=== PATIENT | male | born 1995 | race Caucasian/White ===

== ENCOUNTER → 2016-06-24 | Outpatient (CLI) | payer OTHER ==
[~2016-06-24] MED LIST: ADVIN10/60 INH; ALBUAER2 INH; CETI10TA10 PO; LISD30CA4 PO; PRT/40 PO; SNG10 PO
== END | disposition home or self-care (01) ==
LOC: C.LAB 21:34
DX: Z02.83 Encounter for blood-alcohol and blood-drug test (principal)

== ENCOUNTER 2017-07-21 20:01 | Observation (INO) | payer OTHER ==
[~2017-07-21] VITALS: Ht 167.6 cm; Wt 70.1 kg
[~2017-07-21 20:01] MED LIST changes: +PANT40TA2 PO; -PRT/40 PO
[2017-07-21] MEDS ORDERED: METOCLOPRAMIDE HCL INJ 5 MG/ML 2 ML VIAL IV STA (20:17)
--- NOTE | 2017-07-21 20:20 | EMERGENCY ROOM VISIT NOTE ---
History Report prepared by Melina: Yohannes Lawler Under the Supervision of: Dr. Ernesto Parish M.D. First contact with patient: 20:14 Chief Complaint: ABDOMINAL PAIN Stated Complaint: REALLY SHARP PAIN WHERE MY APPENDIX IS History of Present Illness The patient is a 21 year old male who presents to the Emergency Room with complaints of constant right lower quadrant abdominal pain that began two days prior to arrival. The patient states that he has been experiencing the pain for the past two days, but that it has worsened significantly over the past couple of hours and is now severe. He has no history of cholecystectomy or appendectomy. Source of History: patient Onset: 2 days Position: abdomen (RLQ) Symptom Intensity: severe Timing: constant, worsening Review of Systems See HPI for pertinent positives & negatives. A total of 10 systems reviewed and were otherwise negative. Past Medical & Surgical Medical Problems: (1) ACCIDENT DUE TO SNOWBOARD (2) Acute appendicitis (3) ASTHMA, UNSPECIFIED (4) ATTN DEFICIT W HYPERACT (5) COLLES' FRACTURE-CLOSED (6) CONCUSSION NOS (7) FAM HX-OTH KIDNEY DISEASES (8) FAMILY HISTORY OF OTHER CARDIOVASCULAR DISEASES (9) FAMILY HX-CONDITION NEC (10) FAMILY HX-MALIGNANCY NOS (11) FRACTURE OF STERNUM-CLOS (12) FX DISTAL RADIUS NEC-CL (13) FX HUMERUS NOS-CLOSED (14) FX METACARPAL NOS-CLOSED (15) Gastroesophageal reflux disease (16) TOXIC SHOCK SYNDROME (17) Viral meningitis Family History Patient reports no known family medical history. Social History Smoking Status: Current Every Day Smoker Alcohol Use: none Drug Use: none Marital Status: single Housing Status: lives with family Occupation Status: employed Current/Historical Medications Scheduled PRN Hydrocodone/Acetaminophen 5MG/325MG ([place] 5MG/325MG), 1-2 TABLET PO Q4H PRN for Pain Allergies Coded Allergies: Ibuprofen (Verified Allergy, Mild, HIVES, 07/21/17) Penicillins (Verified Allergy, Mild, HIVES, 07/21/17) Aspirin (Verified Allergy, Unknown, Hives, 07/21/17) Reported by PT. Physical Exam Vital Signs Date Time Temp Pulse Resp B/P (MAP) Pulse Ox O2 Delivery O2 Flow Rate FiO2 07/22/17 02:46 36.7 93 16 137/88 100 Oxymask 6 2/21/18 01:18 37.2 86 18 134/82 98 Room Air 07/22/17 00:03 81 18 132/68 96 Room Air 07/22/17 00:00 87 07/21/17 21:43 100 18 130/73 98 Room Air 07/21/17 20:41 100 19 95 Room Air 07/21/17 20:38 132/75 07/21/17 20:10 36.9 106 16 135/69 96 Room Air Physical Exam GENERAL: Patient is a healthy-appearing well-nourished male HEAD: Normocephalic atraumatic EYES: Ocular movements intact pupils equal and react to light OROPHARYNX mucous membranes are moist no exudates present no erythema or edema present NECK: Supple no nuchal rigidity CHEST: Good equal expansion LUNGS: Clear and equal to auscultation CARDIAC: Normal S1 and S2 ABDOMEN: Soft with tenderness to the RLQ BACK: No CVA tenderness EXTREMITIES: No pain upon palpation normal muscle strength in all groups no clubbing cyanosis or edema NEURO: Patient is following commands and answering questions appropriately. Alert and oriented x3 Cranial Nerves 2-12 grossly intact Medical Decision & Procedures ER Provider Diagnostic Interpretation: CT ABD/PELVIS IV AND ORAL CONT CLINICAL HISTORY: Right lower quadrant abdominal pain COMPARISON STUDY: None. TECHNIQUE: Following the IV administration of 91 mL of Optiray-320, CT scan of the abdomen and pelvis was performed from the lung bases to the proximal femurs. Images are reviewed in the axial, sagittal, and coronal planes. IV contrast was administered without complication. A dose lowering technique was utilized adhering to the principles of ALARA. CT DOSE: 262.05 mGy.cm FINDINGS: Lower chest: The heart is normal in size and configuration, without pericardial effusion. The lung bases and pleural spaces are clear. Liver: The contrast-enhanced liver is normal in size, contour, and attenuation. There is no intrahepatic biliary ductal dilatation. The hepatic veins and portal veins are patent. Gallbladder: Unremarkable. Spleen: Normal in size and attenuation. Pancreas: Unremarkable. Adrenal glands: Unremarkable. Kidneys: There is symmetric renal cortical enhancement. The kidneys are normal in size without hydronephrosis. Bowel: There are no transition zones indicate bowel obstruction. There is a thickened appendix measuring 12 mm with periappendiceal stranding. The findings are indicative of acute appendicitis. There are no fluid collections to indicate an abscess. Peritoneum: There is no intraperitoneal free air or abdominal ascites. Vasculature: The abdominal aorta is normal in course and caliber. Adenopathy: None. Pelvic viscera: The bladder, and pelvic viscera are unremarkable. Skeletal structures: No destructive osseous lesions are seen. IMPRESSION: Acute appendicitis Electronically signed by: Abhijeet Pemberton M.D. 07/22/2017 6:46 AM Laboratory Results Test 07/21/17 20:25 07/21/17 21:40 Total Bilirubin 0.6 mg/dl (0.2-1) Direct Bilirubin 0.2 mg/dl (0-0.2) Aspartate Amino Transf (AST/SGOT) 23 U/L (15-37) Alanine Aminotransferase (ALT/SGPT) 16 U/L (12-78) Alkaline Phosphatase 58 U/L (45-117) Total Protein 7.7 gm/dl (6.4-8.2) Albumin 4.2 gm/dl (3.4-5.0) Lipase 166 U/L (73-393) Urine Color YELLOW Urine Appearance CLEAR (CLEAR) Urine pH 7.0 (4.5-7.5) Urine Specific [place] 1.007 (1.000-1.030) Urine Protein NEG (NEG) Urine Glucose (UA) NEG (NEG) Urine Ketones NEG (NEG) Urine Occult Blood NEG (NEG) Urine Nitrite NEG (NEG) Urine Bilirubin NEG (NEG) Urine Urobilinogen NEG (NEG) Urine Leukocyte Esterase NEG (NEG) Labs reviewed by ED physician. Medications Administered Medications (Trade) Dose Ordered Sig/Andrea Route Start Time Stop Time Status Last Admin Dose Admin Metoclopramide HCl (Reglan Inj) 10 mg NOW STAT IV 07/21/17 20:17 07/21/17 20:18 DC 07/21/17 20:33 10 MG Hydromorphone HCl (Dilaudid Inj) 0.5 mg NOW STAT IV 07/21/17 23:55 07/21/17 23:56 DC 07/22/17 00:09 0.5 MG Ciprofloxacin/ Dextrose (Cipro / D5W) 400 mg NOW STAT IV 07/22/17 00:02 07/22/17 00:04 DC 07/22/17 00:09 400 MG Metronidazole (Flagyl / Nss) 500 mg NOW STAT IV 07/22/17 00:02 07/22/17 00:04 DC 07/22/17 00:09 500 MG Bupivacaine HCl/ Epinephrine Bitart (Sensorcaine/ Epinephrine 0.5% Mpf 1:200,000) 30 ml STK-MED ONCE .ROUTE 07/22/17 00:56 07/22/17 00:57 DC 07/22/17 02:36 10 ML ED Course 2015: Past medical records reviewed. The patient was evaluated in room B9. A complete history and physical examination was performed. 2017: Ordered Reglan 10 mg IV. Medical Decision Differential diagnosis: Etiologies such as appendicitis, diverticulitis, PUD, biliary pathology, UTI, pancreatitis, obstruction, mesenteric ischemia, aortic pathology, infections, inflammatory bowel disease, renal colic, as well as others were entertained. This is a 21-year-old male presents emergency department complaining of right lower quadrant abdominal pain. The patient is afebrile has a normal CBC normal renal profile normal liver profile. He is given Reglan and Dilaudid in the emergency department and sent for CAT scan of the abdomen and pelvis. The patient was signed out to Dr. Oglesby at change of shift Impression Primary Impression: Acute appendicitis Scribe Attestation The scribe's documentation has been prepared under my direction and personally reviewed by me in its entirety. I confirm that the note above accurately reflects all work, treatment, procedures, and medical decision making performed by me. Departure Information Dispostion Still a Patient Prescriptions Hydrocodone/Acetaminophen 5MG/325MG ([place] 5MG/325MG) Tab 1-2 TABLET PO Q4H Y for Pain for 3 Days, #30 TAB Prov: Tacho Anthony, PAGaboC 07/22/17 Referrals No Doctor, Assigned (PCP) Patient Instructions My [facility] Problem Qualifiers Primary Impression: Acute appendicitis Acute appendicitis type: unspecified acute appendicitis type Qualified Codes : K35.80 - Unspecified acute appendicitis
[2017-07-21] MEDS ORDERED: OPTIRAY 320 IV PRN (20:45)
[2017-07-21 20:53] LABS: BASO % 0.3 %; BASO ABS # 0.02 K/uL (0-0.2); EOS % 0.6 %; EOS ABS # 0.04 K/uL (0-0.5); HEMATOCRIT 42.8 % (42-52); HEMOGLOBIN 15.5 g/dL (14.0-18.0); IG# 0.01 K/uL (0.00-0.02); LYMPH % 13.4 %; MEAN CELL VOLUME 79.6 fL (80-100); MEAN CORPUSCULAR HEMOGLOBIN 28.8 pg (25-34); MEAN CORPUSCULAR HGB CONC 36.2 g/dl (32-36); MEAN PLATELET VOLUME 9.6 fL (7.4-10.4); MONO % 5.3 %; MONO ABS # 0.36 K/uL (0.11-0.59); NEUT % 80.3 %; PLATELET COUNT 195 K/uL (130-400); RED CELL DISTRIBUTION WIDTH CV 12.8 % (11.5-14.5); RED CELL DISTRIBUTION WIDTH SD 36.7 fL (36.4-46.3); WHITE BLOOD COUNT 6.73 K/uL (4.8-10.8)
[2017-07-21 21:14] LABS: ALBUMIN 4.2 gm/dl (3.4-5.0); CALCIUM 9.1 mg/dl (8.5-10.1); CREATININE 1.07 mg/dl (0.60-1.40); POTASSIUM 3.5 mmol/L (3.5-5.1)
[2017-07-21 21:17] LABS: TOTAL PROTEIN 7.7 gm/dl (6.4-8.2)
[2017-07-21] MEDS ORDERED: HYDROmorphone INJ 0.5 MG/0.5 ML SYR IV STA (23:55)
[2017-07-21] MEDS ORDERED: CEFOXITIN 2000MG/60 ML D5W IV STA (23:58)
[2017-07-22] VITALS (9 sets, daily range): BP systolic 122–136; BP diastolic 68–89; PULSE 57–87; TEMP 36.3–37.6; O2SAT 94–97; Ht 167.6 cm; Wt 70.1 kg
[2017-07-22] MEDS ORDERED: METRONIDAZOLE 500MG / 100ML NSS IV STA (00:02)
[2017-07-22] MEDS ORDERED: CIPROFLOXACIN 400MG / 200ML D5W IV STA (00:02)
--- NOTE | 2017-07-22 00:44 | History and Physical ---
History & Physical Date Jul 22, 2017. Chief Complaint RLQ abdominal pain History of Present Illness The patient is a 21 year old male with complaints of RLQ abdominal pain x 2 days. states he also has had some accompanying nausea and 2 episodes of vomiting. Denies hematemesis. He has been urinating and moving his bowels without trouble. States he has had some chills these past couple days but is not sure if he has had a fever. Denies recent illness. Denies any previous abdominal surgeries. Denies use of blood thinning or anticoagulant medications. States he last drank a little coffee around 1900. WBC WNL. CT Abd/pelvis shows findings for acute appendicitis. 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 Home Medications No Active Prescriptions or Reported Meds Physical Examination Skin: warm/dry Eyes: normal inspection Head: normocephalic, atraumatic Respiratory/Chest: lungs clear, normal breath sounds, no respiratory distress Cardiovascular: regular rate, rhythm, no murmur Abdomen / GI: normal bowel sounds, + pertinent finding (RLQ TTP) Neurologic/Psych: alert, oriented x 3 Diagnosis Acute Appendicitis ASA Classification: ASA Class I Plan of Treatment Acute Appendicitis Plan for laparoscopic appendectomy, possible open with Dr. Nolasco in the OR tonight. Risks, benefits, alternatives to the procedure were discussed - all questions answered. NPO, SCDs. Pre-op cipro and flagyl administered in the ED. OR Notified. Please contact with questions or concerns.
[2017-07-22] MEDS ORDERED: BUPIVACAINE/EPINEPHRINE 0.5% MPF 1:200,000 30 ML VIAL ONE (00:56)
[2017-07-22] MEDS ORDERED: MIDAZOLAM HCL 1 MG/ML 2ML VIAL ONE (01:27)
[2017-07-22] MEDS ORDERED: FENTANYL CITRATE INJ 50 MCG/1 ML 2 ML VIAL ONE (01:27)
[2017-07-22] MEDS ORDERED: ONDANSETRON INJ 2 MG/ML 2 ML VIAL IV PRN ×2 (01:45→03:00)
[2017-07-22] MEDS ORDERED: HYDROmorphone INJ 2 MG/ML SYR/VIAL IV PRN (01:45)
[2017-07-22] MEDS ORDERED: ATROPINE SULFATE 0.1 MG/ML 5ML SYR IV PRN (01:45)
--- NOTE | 2017-07-22 02:31 | [facility] Post Operative Brief Note ---
Immediate Operative Summary Operative Date Jul 22, 2017. Pre-Operative Diagnosis Acute Appendicitis Post-Operative Diagnosis Same as preoperative Procedure(s) Performed Laparoscopic Appendectomy Surgeon Dr. Amado Nolasco Commercial Portfolio Manager Surgeon(s) Tacho Anthony PA-C Estimated Blood Loss 5ml Findings Consistent with Post-Op Diagnosis Specimens A.) Abdominal Wall Nodule B.) Appendix and contents Drains None Anesthesia Type General Complication(s) none
--- NOTE | 2017-07-22 02:41 | [facility] Operative Report ---
Operative Report Operative Date Jul 22, 2017. Pre-Operative Diagnosis Acute Appendicitis Post-Operative Diagnosis Same as preoperative Procedure(s) Performed Laparoscopic Appendectomy Surgeon Dr. Amado Nolasco Automotive Refinisher Surgeon(s) Tacho Anthony PA-C Estimated Blood Loss 5ml Specimens A.) Abdominal Wall Nodule B.) Appendix and contents Drains None Anesthesia Type General Complication(s) none Description of Procedure After informed consent was obtained the patient was taken to the operating room and placed in a supine position. After successful intubation a Dubose catheter was placed the left arm was tucked and the abdomen was shaved. We then sterilely prepped and draped the abdomen. A periumbilical incision was made with an 11 blade scalpel and carried down through the soft tissue using electrocautery. The anterior rectus fascia was opened using electrocautery and 2 #0 Vicryl stay sutures were placed. Peritoneum was elevated with hemostats and incised under direct vision using Metzenbaum scissor. A finger sweep was performed. A 12 mm [place] O trocar was placed and the abdomen was insufflated to 18 mmHg. Laparoscope was inserted and the abdomen was examined in 360. A suprapubic 5 mm port in the left lower quadrant 12 mm port were placed under direct vision. Attention turned the right lower quadrant. We immediately encountered an inflamed appendix. It was easy to dissect from surrounding tissue using blunt graspers. Once we did this we were able to first transect the appendix itself from the base of the cecum with a RAYMUNDO purple cartridge stapler. A second firing of the same purple stapler was used to take down the mesentery of the appendix. It was placed into an Endo Catch bag and removed from the camera port site. We ran the bowel backwards for several feet from the terminal ileum and there were no gross abnormalities. Cecum small bowel etc. was all normal. Liver stomach was normal as well. There was some free fluid in the pelvis which we suctioned out. I then thoroughly irrigated the pelvis as well as the right lower quadrant. At the end of the procedure there was adequate hemostasis. The trochars were all removed and the abdomen was desufflated. The fascia of the camera port as well as left lower quadrant were closed using 0 Vicryl with [id number] fashion. Wounds were all irrigated and closed using 4-0 Monocryl. Marcaine was injected around them for postoperative analgesia and skin glue used as a dressing the patient was awaken extubated and transferred to recovery in stable condition. My physician's bilingual teacher assistant was present throughout the entire case. He helps prep the patient. He helped with retraction and trocar placement he helped maneuver the camera help with wound closure at the end of the case and dressing placement. I attest to the content of the Intraoperative Record and any orders documented therein. Any exceptions are noted below.
[2017-07-22] MEDS ORDERED: NEOSTIGMINE METHYLSULFATE 5 MG/5 ML SYR ONE (02:45)
[2017-07-22] MEDS ORDERED: PROPOFOL IV EMULSION 10 MG/ML 20 ML VIAL IV ONE (02:45)
[2017-07-22] MEDS ORDERED: LIDOCAINE HCL 2% 2 ML VIAL (20MG/ML) ONE (02:45)
[2017-07-22] MEDS ORDERED: ONDANSETRON INJ 2 MG/ML 2 ML VIAL ONE (02:45)
[2017-07-22] MEDS ORDERED: GLYCOPYRROLATE INJ 0.2 MG/ML VIAL ONE (02:45)
[2017-07-22] MEDS ORDERED: HYDROmorphone INJ 1 MG/ML SYR IV PRN (03:00)
[2017-07-22] MEDS ORDERED: HYDROmorphone INJ 0.5 MG/0.5 ML SYR IV PRN (03:00)
[2017-07-22] MEDS ORDERED: ACETAMINOPHEN IV 100 ML IV PRN (03:00)
[2017-07-22] MEDS ORDERED: HYDROCODONE/ACETAMIN 5/325MG TAB PO PRN (03:00)
--- NOTE | 2017-07-22 03:11 | Anesthesiology Progress Note ---
Anesthesia Post Op Note Date & Time Jul 22, 2017 at 03:11 Vital Signs Vital Signs Past 12 Hours Date Time Temp Pulse Resp B/P (MAP) Pulse Ox O2 Delivery O2 Flow Rate FiO2 07/22/17 03:05 36.3 55 16 129/87 96 Room Air 07/22/17 02:56 61 16 137/87 100 Oxymask 2 07/22/17 02:46 36.7 93 16 137/88 100 Oxymask 6 07/22/17 01:18 37.2 86 18 134/82 98 Room Air 07/22/17 00:03 81 18 132/68 96 Room Air 07/22/17 00:00 87 07/21/17 21:43 100 18 130/73 98 Room Air 07/21/17 20:41 100 19 95 Room Air 07/21/17 20:38 132/75 07/21/17 20:10 36.9 106 16 135/69 96 Room Air Notes Mental Status: alert / awake / arousable, participated in evaluation Pt Amnestic to Procedure: Yes Nausea / Vomiting: adequately controlled Pain: adequately controlled Airway Patency, RR, SpO2: stable & adequate BP & HR: stable & adequate Hydration State: stable & adequate Anesthetic Complications: no major complications apparent
[2017-07-22] MEDS ORDERED: IV FLUIDS COMPLETED PRN (05:00)
[2017-07-22] MEDS: LACTATED RINGER'S 1000ML 1,000 ML IV SCH ×2 (05:18→11:39)
--- NOTE | 2017-07-22 05:59 | Discharge Instructions ---
Discharge Instructions Date of Service Jul 22, 2017. Admission Reason for Admission: Acute Appendicitis Discharge Discharge Diagnosis / Problem: Acute Appendicitis Discharge Goals Goal(s): Decrease discomfort, Improve function Activity Recommendations Activity Limitations: as noted below Lifting Limitations: no more than 10 pounds, until after follow-up appointment Exercise/Sports Limitations: until after follow-up appointment May Resume Sexual Activity: after follow-up appointment Shower/Bathe: tomorrow Driving or Machine Use: resume 3 days after discharge (Please do not drive while using narcotic pain medication) . Instructions / Follow-Up Instructions / Follow-Up You have surgical glue covering your incisions. Please allow this to fall off on its own. You have been prescribed [place] to take as needed for pain relief. Please use as directed. Please follow-up with Dr. Nolasco in 1-2 weeks. Please contact our office at to schedule an appointment. Please contact our office with any further questions or concerns. [employer] [address] [place] [address]. Current Hospital Diet Patient's current hospital diet: Clear Liquid Diet Discharge Diet Recommended Diet: Regular Diet Procedures Procedures Performed: Laparoscopic Appendectomy Pending Studies Studies pending at discharge: yes List of pending studies: pathology Medical Emergencies . Who to Call and When: Medical Emergencies: If at any time you feel your situation is an emergency, please call 911 immediately. . Non-Emergent Contact Non-Emergency issues call your: Primary Care Provider, Surgeon Call Non-Emergent contact if: you have a fever, temperature is above 101.5, your pain is not controlled, your pain is worsening, wound has increased drainage, wound has increased redness . "Provider Documentation" section prepared by Tacho Anthony. . VTE Core Measure Inpt VTE Proph given/why not?: [facility] [place] Drug Monitoring Program Search Results: patient reviewed within database, no issues identified
[2017-07-22 06:06] LABS: BASO % 0.1 %; BASO ABS # 0.01 K/uL (0-0.2); EOS % 0.3 %; EOS ABS # 0.02 K/uL (0-0.5); HEMATOCRIT 40.4 % (42-52); HEMOGLOBIN 14.2 g/dL (14.0-18.0); IG# 0.02 K/uL (0.00-0.02); LYMPH % 12.2 %; LYMPH ABS # 0.84 K/uL (1.2-3.4); MEAN CORPUSCULAR HEMOGLOBIN 28.5 pg (25-34); MEAN CORPUSCULAR HGB CONC 35.1 g/dl (32-36); MEAN PLATELET VOLUME 9.9 fL (7.4-10.4); MONO % 6.8 %; MONO ABS # 0.47 K/uL (0.11-0.59); NEUT % 80.3 %; NEUT ABS # 5.55 K/uL (1.4-6.5); PLATELET COUNT 175 K/uL (130-400); RED CELL DISTRIBUTION WIDTH CV 12.9 % (11.5-14.5); RED CELL DISTRIBUTION WIDTH SD 38.3 fL (36.4-46.3); WHITE BLOOD COUNT 6.91 K/uL (4.8-10.8)
[2017-07-22] MEDS ORDERED: HYDR-5688 PO (06:24)
--- NOTE | 2017-07-22 06:24 | Surgery Progress Note ---
Surgery Progress Note Date of Service Jul 22, 2017. Subjective Post OP Day: POD#0 + feeling well, + pain controlled, + diet (Tolerating clear liquids), No complaints, No bowel movement, No nausea, No vomiting Patient reports he has not urinated yet since the procedure Objective Vital Signs: Date Time Temp Pulse Resp B/P (MAP) Pulse Ox O2 Delivery O2 Flow Rate FiO2 07/22/17 05:20 36.9 66 16 128/76 (93) 94 Room Air 07/22/17 04:20 36.8 64 16 136/84 (101) 95 Room Air 07/22/17 03:50 36.7 75 16 129/83 (98) 96 Room Air 07/22/17 03:20 97 Room Air 07/22/17 03:20 97 Room Air 2.0 07/22/17 03:20 36.7 57 16 131/89 97 Room Air 07/22/17 03:20 36.7 57 16 131/89 (103) 97 Room Air 07/22/17 03:11 36.3 53 16 114/66 96 Room Air 07/22/17 03:05 36.3 55 16 129/87 96 Room Air 07/22/17 02:56 61 16 137/87 100 Oxymask 2 07/22/17 02:46 36.7 93 16 137/88 100 Oxymask 6 07/22/17 01:18 37.2 86 18 134/82 98 Room Air 07/22/17 00:03 81 18 132/68 96 Room Air 07/22/17 00:00 87 07/21/17 21:43 100 18 130/73 98 Room Air 07/21/17 20:41 100 19 95 Room Air 07/21/17 20:38 132/75 07/21/17 20:10 36.9 106 16 135/69 96 Room Air General Appearance: no apparent distress Head: normocephalic, atraumatic Respiratory/Chest: no respiratory distress, no accessory muscle use Abdomen: non distended, soft, no organomegaly, + tenderness (Incisional TTP) Incision(s): clean, dry, intact, no erythema, no drainage Laboratory Results: Results Past 24 Hours Test 07/21/17 20:25 07/21/17 21:40 07/22/17 05:32 Range/Units White Blood Count 6.73 6.91 4.8-10.8 K/uL Red Blood Count 5.38 4.99 4.7-6.1 M/uL Hemoglobin 15.5 14.2 14.0-18.0 g/dL Hematocrit 42.8 40.4 42-52 % Mean Corpuscular Volume 79.6 81.0 80-100 fL Mean Corpuscular Hemoglobin 28.8 28.5 25-34 pg Mean Corpuscular Hemoglobin Concent 36.2 35.1 32-36 g/dl Platelet Count 195 175 130-400 K/uL Mean Platelet Volume 9.6 9.9 7.4-10.4 fL Neutrophils (%) (Auto) 80.3 80.3 % Lymphocytes (%) (Auto) 13.4 12.2 % Monocytes (%) (Auto) 5.3 6.8 % Eosinophils (%) (Auto) 0.6 0.3 % Basophils (%) (Auto) 0.3 0.1 % Neutrophils # (Auto) 5.40 5.55 1.4-6.5 K/uL Lymphocytes # (Auto) 0.90 0.84 1.2-3.4 K/uL Monocytes # (Auto) 0.36 0.47 0.11-0.59 K/uL Eosinophils # (Auto) 0.04 0.02 0-0.5 K/uL Basophils # (Auto) 0.02 0.01 0-0.2 K/uL RDW Standard Deviation 36.7 38.3 36.4-46.3 fL RDW Coefficient of Variation 12.8 12.9 11.5-14.5 % Immature Granulocyte % (Auto) 0.1 0.3 % Immature Granulocyte # (Auto) 0.01 0.02 0.00-0.02 K/uL Sodium Level 138 136-145 mmol/L Potassium Level 3.5 3.5-5.1 mmol/L Chloride Level 102 98-107 mmol/L Carbon Dioxide Level 28 21-32 mmol/L Anion Gap 8.0 3-11 mmol/L Blood Urea Nitrogen 10 7-18 mg/dl Creatinine 1.07 0.60-1.40 mg/dl Est Creatinine Clear Calc Drug Dose 98.5 ml/min Estimated GFR () 114.4 Estimated GFR (Non- 98.7 BUN/Creatinine Ratio 9.5 10-20 Random Glucose 100 70-99 mg/dl Calcium Level 9.1 8.5-10.1 mg/dl Total Bilirubin 0.6 0.2-1 mg/dl Direct Bilirubin 0.2 0-0.2 mg/dl Aspartate Amino Transf (AST/SGOT) 23 15-37 U/L Alanine Aminotransferase (ALT/SGPT) 16 12-78 U/L Alkaline Phosphatase 58 45-117 U/L Total Protein 7.7 6.4-8.2 gm/dl Albumin 4.2 3.4-5.0 gm/dl Lipase 166 73-393 U/L Urine Color YELLOW Urine Appearance CLEAR CLEAR Urine pH 7.0 4.5-7.5 Urine Specific [place] 1.007 1.000-1.030 Urine Protein NEG NEG Urine Glucose (UA) NEG NEG Urine Ketones NEG NEG Urine Occult Blood NEG NEG Urine Nitrite NEG NEG Urine Bilirubin NEG NEG Urine Urobilinogen NEG NEG Urine Leukocyte Esterase NEG NEG Assessment & Plan POD #0 s/p laparoscopic appendectomy pain controlled on PO meds, NO N/V. Patient denies any urination since the procedure at this time. AM labs pending. Tolerating clear liquids, ADAT. D/C today if pain controlled on PO meds, tolerating foods and urinating. Please contact with questions or concerns.
[2017-07-22 06:39] LABS: CALCIUM 8.4 mg/dl (8.5-10.1); CREATININE 0.85 mg/dl (0.60-1.40); POTASSIUM 3.9 mmol/L (3.5-5.1)
--- NOTE | 2017-07-22 06:48 | DIAGNOSTIC IMAGING REPORT ---
CT ABD/PELVIS IV AND ORAL CONT CLINICAL HISTORY: Right lower quadrant abdominal pain COMPARISON STUDY: None. TECHNIQUE: Following the IV administration of 91 mL of Optiray-320, CT scan of the abdomen and pelvis was performed from the lung bases to the proximal femurs. Images are reviewed in the axial, sagittal, and coronal planes. IV contrast was administered without complication. A dose lowering technique was utilized adhering to the principles of ALARA. CT DOSE: 262.05 mGy.cm FINDINGS: Lower chest: The heart is normal in size and configuration, without pericardial effusion. The lung bases and pleural spaces are clear. Liver: The contrast-enhanced liver is normal in size, contour, and attenuation. There is no intrahepatic biliary ductal dilatation. The hepatic veins and portal veins are patent. Gallbladder: Unremarkable. Spleen: Normal in size and attenuation. Pancreas: Unremarkable. Adrenal glands: Unremarkable. Kidneys: There is symmetric renal cortical enhancement. The kidneys are normal in size without hydronephrosis. Bowel: There are no transition zones indicate bowel obstruction. There is a thickened appendix measuring 12 mm with periappendiceal stranding. The findings are indicative of acute appendicitis. There are no fluid collections to indicate an abscess. Peritoneum: There is no intraperitoneal free air or abdominal ascites. Vasculature: The abdominal aorta is normal in course and caliber. Adenopathy: None. Pelvic viscera: The bladder, and pelvic viscera are unremarkable. Skeletal structures: No destructive osseous lesions are seen. IMPRESSION: Acute appendicitis Electronically signed by: Abhijeet Pemberton M.D. 07/22/2017 6:46 AM Dictated Date/Time: 07/22/2017 6:45 AM
[2017-07-22] MEDS: HYDROCODONE/ACETAMIN 5/325MG TAB PO PRN ×2 (07:32→11:38)
--- NOTE | 2017-07-23 18:55 | Discharge Summary ---
Discharge Summary Date of Service Jul 23, 2017. Admission Date/Reason Jul 22, 2017 at 02:50 Acute Appendicitis. Discharge Date/Disposition Jul 22, 2017 Home Diagnosis Principal Diagnosis: Acute Appendicitis Procedure(s) Performed laparoscopic appendectomy Medication Reconciliation [place] 5mg/325mg PO 1-2 Tablets Q4H PRN for pain x 3 days. Disp: 30 Tabs Admission Physical Exam As per Admitting History & Physical. Hospital Course 07/22/17: Patient presented to the ED early this morning with RLQ pain x 2 days. Reports nausea with 2 episodes of vomiting without hematemesis. Reports chills as well but denies any fever. WBC WNL. CT abd/pelvis shows findings significant for acute appendicitis. At this time it was decided to take the patient to the OR for laparoscopic appendectomy with Dr. Nolasco. The procedure was performed without complications and the appendix was sent to pathology. The patient was then started on a clear liquid diet, ADAT. He was admitted to med/surg on observation at this time. Later this morning his pain was controlled and he was tolerating clear liquids. He was discharged later this afternoon once he was tolerating some foods and urinating without problems. Patient was sent home with a 3 day prescription for [place] to take as needed for pain relief. He was given instructions to follow-up with Dr. Nolasco in the office in 1-2 weeks time. Discharge Instructions Please refer to the electronic Patient Visit Report (Discharge Instructions) for additional information.
== END 2017-07-22 14:00 | disposition home or self-care (01) ==
LOC: C.EDB 20:03 → C.MSN 07-22 02:50 → ENRESERV 07-22 03:00
PROVIDERS: ADMIT Surgery; ATTEND Surgery
DX: K35.80 Unspecified acute appendicitis (principal); J45.909 Unspecified asthma, uncomplicated; K21.9 Gastro-esophageal reflux disease without esophagitis; Z88.0 Allergy status to penicillin; Z88.6 Allergy status to analgesic agent; Z90.89 Acquired absence of other organs; Z98.890 Other specified postprocedural states; Z84.1 Family history of disorders of kidney and ureter; Z82.49 Family history of ischemic heart disease and other diseases of the circulatory system; Z80.9 Family history of malignant neoplasm, unspecified

== ENCOUNTER 2021-06-30 07:43 | Inpatient (IN) ==
--- NOTE | 2021-06-30 08:00 | Emergency Department Note ---
Impression & Plan Depression with suicidal ideation, Alcohol intoxication ED Provider Note Name: KVNG STEPHENS Age: 25 Sex: M Arrives Via: Ambulance Informant: Patient ED Provider: Donn Oglesby MD Chief Complaint: Depression Impression: As per impressions above Medical Decision Makin-year-old male with a history of depression and previous psychiatric hospitalizations for depression/suicidal ideation arrives for mental health evaluation. Patient notes increasing stressors and depression over the last few weeks and increasing thoughts of suicidal ideation. The last few days been quite tough and has been having increasing thoughts of harming himself. After work this morning and attempt to avoid harming himself he drank multiple beers and 4 locus but states this did not help. Due to worsening thoughts of self- harm he called 911 was brought here by EMS. Patient states he is concerned he may harm himself. He denies any actual attempt at harm recently and has no specific plan nor has he made any act of furtherance. He has no acute medical issues currently there is significantly intoxicated. Patient will be observed for roughly 10+ hours until he is clinically sober and will have further evaluation by mental health case management. Patient was reevaluated and stable throughout. There is no evidence nor history of withdrawal and he denies daily drinking heavily. Prior Medical Record and Triage/Nursing Notes reviewed by Me Additional history obtained from chart Differentials:Mood disorder, infection, hypoglycemia, electrolyte abnormalities, cardiac sources, intracerebral event, toxicologic, trauma, neurologic, as well as other pathologies. Vital Signs: reviewed and remarkable for no significant abnormalities Interventions: None Labs:Reviewed and remarkable for elevated alcohol level Plan: Disposition: Signed out to Dr Angel Condition: Good History of Present Illness:25-year-old male arrives for evaluation of mental health complaint. Patient notes many years of depression and anxiety. He states over the last few weeks symptoms seem to have been worsening. He has no specific cause but does note that he has multiple family members that have passe d away over the last few years. Patient states for the last day or so he has had increasing suicidal thoughts without any specific plan. He worked a shift overnight and this morning around 4 AM was feeling severely depressed. He did note he drank roughly 4 beers to try and calm himself down but states he is still feeling very sad. Patient admits that suicidal thoughts started before he was drinking alcohol. He has done nothing to try and harm himself and states he has no specific plan to do so. He denies any drug use beyond his medical marijuana and denies any pills or other medications taken. He has done nothing I drink alcohol this morning and attempt to make this feel better. He denies any harmed by others. He denies any medical complaints at this time. Patient states his job and relationships are going well and he has no specific reason for his depression other than the family and friends that have in the recent years. Patient does have a hospitalization for depression about 8 months ago [facility]. Patient denies taking any of his medications that he was supposed to be on and states he does not know who he has as a primary care provider or as a psychiatrist. Patient states that nothing seems to make his depression better or worse. ROS: See above HPI for pertinent positives & negatives. A total of 10 systems reviewed and were otherwise negative. Past Medical History:Anxiety, depression, asthma Past Surgical History:Appendectomy Family History:Mother with schizophrenia, anxiety, depression and previous suicide attempt Social History:Patient is an occasional tobacco user, occasional alcohol, medical marijuana user and denies other drugs. He works at [employer] Medications:None Allergies:Ibuprofen, penicillin Vitals:Blood Pressure: 145/90, Pulse 90, RR 20, T 36.5C, O2 96% on RA Physical Exam: GENERAL: Patient is mildly intoxicated appearing and in minimal distress. EYES: No scleral icterus, unremarkable pupils. ENT: Mucous membranes moist, no nasal congestion. NECK: No masses appreciated, nomeningismus, trachea is midline. RESPIRATORY: No dyspnea. Clear to auscultation and equal bilaterally. No wheeze, no rhonchi. CARDIOVASCULAR: Regular rate and rhythm.No murmurs, rubs, gallops appreciated. GASTROINTESTINAL: Abdomen soft, non-tender, no peritonitis.Bowel sounds positive.No masses appreciated. BACK: No midline tenderness, no CVA tenderness EXTREMITIES: Normal motion all extremities, no cyanosis, no edema. NEUROLOGIC: Alert and oriented, no acute motor or sensory deficits, no focal weakness, cranial nerves grossly intact. SKIN: No rash, no jaundice, no diaphoresis. PSYCH: Depressed, admits suicidal ideation without plan GCS: 15 ED Course: Times/Reassessments: Possible evaluations. Patient calm cooperative and in no distress. Gradually sobering. Agreeable to waiting until he is sober prior to mental health evaluation Donn Oglesby MD Past Med/Surg History Medical History Asthma Surgical History Hx of appendectomy Social History Smoking Status: Current every day smoker Tobacco Type: Cigarettes Preferred Language: Occitan Feels Safe at Home: Yes Allergies Allergies Allergy/AdvReac Type Severity Reaction Status Date / Time ibuprofen Allergy Mild HIVES Verified 10/14/20 17:49 Penicillins Allergy Mild HIVES Verified 10/14/20 17:49 aspirin Allergy Unknown Hives Verified 07/21/17 20:50 Home Meds Home Medications Medication Instructions Recorded Confirmed No Known Home Medications 06/30/21 06/30/21 Results & Data (ED) Vital Signs Vital Signs - 24 hr 06/30/21 07:45 06/30/21 11:17 06/30/21 13:03 Temperature 36.5 C Temperature Source Oral Pulse Rate 90 Pulse Rate [Apical] 73 81 Pulse Rhythm Regular Pulse Strength Normal Respiratory Rate 20 20 20 Respiratory Effort / Characteristics Non-Labored Non-Labored Spontaneous Non-Labored Spontaneous Respiratory Depth Normal Normal Normal Respiratory Pattern Regular Regular Regular Blood Pressure 145/90 H Blood Pressure [Right Arm] 115/63 122/64 Blood Pressure Mean 108 Blood Pressure Mean [Right Arm] 80 83 Blood Pressure Position Lying Pulse Oximetry 96 96 94 Oxygen Delivery Method Room Air Room Air Room Air Sepsis Recent Fever Within 48 Hours No Sepsis New/Unexplained Change in Mental Status No Sepsis Action Taken by Nursing No Action Required Laboratory Data Result diagrams: 06/30/21 08:13 06/30/21 08:13 Lab Results 06/30/21 06/30/21 06/30/21 Range/Units 08:05 08:05 08:05 WBC (4.8-10.8) K/uL RBC (4.7-6.1) M/uL Hgb (14.0-18.0) g/dL Hct (42-52) % MCV (80-100) fL MCH (25-34) pg MCHC (32-36) g/dL RDW Std Deviation (36.4-46.3) fL RDW Coeff of [place] (11.5-14.5) % Plt Count (130-400) K/uL MPV (7.4-10.4) fL Immature Gran % (Auto) % Neut % (Auto) % Lymph % (Auto) % [place] % (Auto) % Eos % (Auto) % Baso % (Auto) % Neut # (Auto) (1.4-6.5) K/uL Lymph # (Auto) (1.2-3.4) K/uL [place] # (Auto) (0.11-0.59) K/uL Eos # (Auto) (0-0.5) K/uL Baso # (Auto) (0-0.2) K/uL Immature Gran # (Auto) (0.00-0.02) K/uL Sodium (136-145) mmol/L Potassium (3.5-5.1) mmol/L Chloride (98-107) mmol/L Carbon Dioxide (21-32) mmol/L Anion Gap (3-11) BUN (6-23) mg/dl Creatinine (0.6-1.4) mg/dl Est Cr Clr Drug Dosing ml/min Est GFR ( Amer) ml/min Est GFR (Non-Af Amer) ml/min BUN/Creatinine Ratio (10-20) Glucose (70-99(Fasting)) mg/dl Calcium (8.5-10.1) mg/dl Total Bilirubin (0.2-1.0) mg/dl AST (13-39) U/L ALT (7-52) U/L Alkaline Phosphatase (34-104) U/L Total Protein (6.0-8.3) gm/dl Albumin (3.4-5.0) gm/dl Globulin (2.5-4.0) gm/dl Albumin/Globulin Ratio (0.9-2) TSH (0.300-4.500) uIu/ml Urine Color Yellow Urine Appearance Clear (Clear) Urine pH 6.0 (4.5-7.5) Ur Specific [place] 1.005 (1.000-1.030) Urine Protein Negative (Negative) Urine Glucose (UA) Negative (Negative) Urine Ketones Negative (Negative) Urine Blood Negative (Negative) Urine Nitrite Negative (Negative) Urine Bilirubin Negative (Negative) Urine Urobilinogen Negative (Negative) Ur Leukocyte Esterase Negative (Negative) Salicylates (3.0-30) mg/dl Urine Opiates Screen Neg (Neg) Ur Methadone, Qual Neg (Neg) Acetaminophen (10-30) ug/ml Urine Barbiturates Neg (Neg) Ur Phencyclidine (PCP) Neg (Neg) U Amphetamin/Meth Scrn Neg (Neg) MDMA (Ecstasy) Screen Neg (Neg) U Benzodiazepines Scrn Neg (Neg) Ur Cocaine Metabolite Neg (Neg) U Marijuana (THC) Screen Neg (Neg) Ethyl Alcohol mg/dL (<10.0) mg/dl SARS-CoV-2, RNA, NAAT NEGATIVE (NEGATIVE) 06/30/21 06/30/21 06/30/21 Range/Units 08:13 08:13 08:13 WBC 7.31 (4.8-10.8) K/uL RBC 5.06 (4.7-6.1) M/uL Hgb 14.7 (14.0-18.0) g/dL Hct 43.4 (42-52) % MCV 85.8 (80-100) fL MCH 29.1 (25-34) pg MCHC 33.9 (32-36) g/dL RDW Std Deviation 42.8 (36.4-46.3) fL RDW Coeff of [place] 13.8 (11.5-14.5) % Plt Count 259 (130-400) K/uL MPV 9.1 (7.4-10.4) fL Immature Gran % (Auto) 0.1 % Neut % (Auto) 51.5 % Lymph % (Auto) 40.2 % [place] % (Auto) 4.5 % Eos % (Auto) 3.4 % Baso % (Auto) 0.3 % Neut # (Auto) 3.76 (1.4-6.5) K/uL Lymph # (Auto) 2.94 (1.2-3.4) K/uL [place] # (Auto) 0.33 (0.11-0.59) K/uL Eos # (Auto) 0.25 (0-0.5) K/uL Baso # (Auto) 0.02 (0-0.2) K/uL Immature Gran # (Auto) 0.01 (0.00-0.02) K/uL Sodium 140 (136-145) mmol/L Potassium 3.6 (3.5-5.1) mmol/L Chloride 102 (98-107) mmol/L Carbon Dioxide 31 (21-32) mmol/L Anion Gap 7 (3-11) BUN 15 (6-23) mg/dl Creatinine 1.04 (0.6-1.4) mg/dl Est Cr Clr Drug Dosing 111.3 ml/min Est GFR ( Amer) 115.1 ml/min Est GFR (Non-Af Amer) 99.3 ml/min BUN/Creatinine Ratio 14.4 (10-20) Glucose 68 L (70-99(Fasting)) mg/dl Calcium 9.5 (8.5-10.1) mg/dl Total Bilirubin 0.4 (0.2-1.0) mg/dl AST 44 H (13-39) U/L ALT 25 (7-52) U/L Alkaline Phosphatase 57 (34-104) U/L Total Protein 7.7 (6.0-8.3) gm/dl Albumin 4.8 (3.4-5.0) gm/dl Globulin 2.9 (2.5-4.0) gm/dl Albumin/Globulin Ratio 1.7 (0.9-2) TSH 0.793 (0.300-4.500) uIu/ml Urine Color Urine Appearance (Clear) Urine pH (4.5-7.5) Ur Specific [place] (1.000-1.030) Urine Protein (Negative) Urine Glucose (UA) (Negative) Urine Ketones (Negative) Urine Blood (Negative) Urine Nitrite (Negative) Urine Bilirubin (Negative) Urine Urobilinogen (Negative) Ur Leukocyte Esterase (Negative) Salicylates (3.0-30) mg/dl Urine Opiates Screen (Neg) Ur Methadone, Qual (Neg) Acetaminophen (10-30) ug/ml Urine Barbiturates (Neg) Ur Phencyclidine (PCP) (Neg) U Amphetamin/Meth Scrn (Neg) MDMA (Ecstasy) Screen (Neg) U Benzodiazepines Scrn (Neg) Ur Cocaine Metabolite (Neg) U Marijuana (THC) Screen (Neg) Ethyl Alcohol mg/dL (<10.0) mg/dl SARS-CoV-2, RNA, NAAT (NEGATIVE) 06/30/21 06/30/21 Range/Units 08:13 08:13 WBC (4.8-10.8) K/uL RBC (4.7-6.1) M/uL Hgb (14.0-18.0) g/dL Hct (42-52) % MCV (80-100) fL MCH (25-34) pg MCHC (32-36) g/dL RDW Std Deviation (36.4-46.3) fL RDW Coeff of [place] (11.5-14.5) % Plt Count (130-400) K/uL MPV (7.4-10.4) fL Immature Gran % (Auto) % Neut % (Auto) % Lymph % (Auto) % [place] % (Auto) % Eos % (Auto) % Baso % (Auto) % Neut # (Auto) (1.4-6.5) K/uL Lymph # (Auto) (1.2-3.4) K/uL [place] # (Auto) (0.11-0.59) K/uL Eos # (Auto) (0-0.5) K/uL Baso # (Auto) (0-0.2) K/uL Immature Gran # (Auto) (0.00-0.02) K/uL Sodium (136-145) mmol/L Potassium (3.5-5.1) mmol/L Chloride (98-107) mmol/L Carbon Dioxide (21-32) mmol/L Anion Gap (3-11) BUN (6-23) mg/dl Creatinine (0.6-1.4) mg/dl Est Cr Clr Drug Dosing ml/min Est GFR ( Amer) ml/min Est GFR (Non-Af Amer) ml/min BUN/Creatinine Ratio (10-20) Glucose (70-99(Fasting)) mg/dl Calcium (8.5-10.1) mg/dl Total Bilirubin (0.2-1.0) mg/dl AST (13-39) U/L ALT (7-52) U/L Alkaline Phosphatase (34-104) U/L Total Protein (6.0-8.3) gm/dl Albumin (3.4-5.0) gm/dl Globulin (2.5-4.0) gm/dl Albumin/Globulin Ratio (0.9-2) TSH (0.300-4.500) uIu/ml Urine Color Urine Appearance (Clear) Urine pH (4.5-7.5) Ur Specific [place] (1.000-1.030) Urine Protein (Negative) Urine Glucose (UA) (Negative) Urine Ketones (Negative) Urine Blood (Negative) Urine Nitrite (Negative) Urine Bilirubin (Negative) Urine Urobilinogen (Negative) Ur Leukocyte Esterase (Negative) Salicylates < 3.0 L (3.0-30) mg/dl Urine Opiates Screen (Neg) Ur Methadone, Qual (Neg) Acetaminophen < 3 L (10-30) ug/ml Urine Barbiturates (Neg) Ur Phencyclidine (PCP) (Neg) U Amphetamin/Meth Scrn (Neg) MDMA (Ecstasy) Screen (Neg) U Benzodiazepines Scrn (Neg) Ur Cocaine Metabolite (Neg) U Marijuana (THC) Screen (Neg) Ethyl Alcohol mg/dL 343.3 H (<10.0) mg/dl SARS-CoV-2, RNA, NAAT (NEGATIVE) Discharge Plan Visit Data Chief Complaint: Mental Health Evaluation ED Provider: Ameya Angel Discharge Problem: Depression with suicidal ideation, Alcohol intoxication Forms Stand Alone Forms: [facility], Suicide Prevention Resources Prescriptions Prescriptions: No Action No Known Home Medications RF: 0 Referrals Referrals: PCP,NO [Primary Care Provider] - Discharge Problem: Alcohol intoxication Qualifiers: Complication of substance-induced condition: uncomplicated Qualified Code(s): F10.920 - Alcohol use, unspecified with intoxication, uncomplicated
[2021-06-30 08:21] LABS: Appearance Urine Clear (Clear); Bilirubin Urine Negative (Negative); Blood Urine Negative (Negative); Color Urine Yellow; Glucose Urine UA Negative (Negative); Ketones Urine Negative (Negative); Leukocyte Esterase Urine Negative (Negative); Nitrite Urine Negative (Negative); Protein Urine Negative (Negative); Specific Gravity Urine 1.005 (1.000-1.030); Urobilinogen Urine Negative (Negative)
[2021-06-30 08:31] LABS: Basophils # (auto) 0.02 K/uL (0-0.2); Basophils % (auto) 0.3 %; Eosinophils # (auto) 0.25 K/uL (0-0.5); Eosinophils % (auto) 3.4 %; Hematocrit (blood only) 43.4 % (42-52); Hemoglobin 14.7 g/dL (14.0-18.0); Immature Granulocytes # (auto) 0.01 K/uL (0.00-0.02); Immature Granulocytes % (auto) 0.1 %; Lymphocytes # (auto) 2.94 K/uL (1.2-3.4); Lymphocytes % (auto) 40.2 %; Mean Corpuscular Hemoglobin 29.1 pg (25-34); Mean Corpuscular Hgb Conc 33.9 g/dL (32-36); Mean Corpuscular Volume 85.8 fL (80-100); Mean Platelet Volume 9.1 fL (7.4-10.4); Monocytes # (auto) 0.33 K/uL (0.11-0.59); Monocytes % (auto) 4.5 %; Neutrophils # (auto) 3.76 K/uL (1.4-6.5); Neutrophils % (auto) 51.5 %; Platelet Count 259 K/uL (130-400); RDW Coefficient of Variation 13.8 % (11.5-14.5); RDW Standard Deviation 42.8 fL (36.4-46.3); Red Blood Count 5.06 M/uL (4.7-6.1); White Blood Count 7.31 K/uL (4.8-10.8)
[2021-06-30 09:13] LABS: Albumin Globulin Ratio 1.7 (0.9-2); Albumin Level 4.8 gm/dl (3.4-5.0); BUN Creatinine Ratio 14.4 (10-20); Bilirubin,Total 0.4 mg/dl (0.2-1.0); Calcium 9.5 mg/dl (8.5-10.1); Creatinine Clr Calc Pharmacy 111.3 ml/min; Est GFR (African American) 115.1 ml/min; Est GFR (Non-African American) 99.3 ml/min; Globulin 2.9 gm/dl (2.5-4.0); Potassium 3.6 mmol/L (3.5-5.1); Total Protein 7.7 gm/dl (6.0-8.3)
[2021-06-30 09:21] LABS: Acetaminophen < 3 ug/ml (10-30); Salicylate < 3.0 mg/dl (3.0-30)
[2021-06-30 09:54] LABS: Amphetamines+Metham, Urine Neg (Neg); Barbiturates, Urine Neg (Neg); Benzodiazepine, Urine Neg (Neg); Cocaine, Urine Neg (Neg); MDMA (Ecstacy), Urine Neg (Neg); Methadone, Urine Neg (Neg); Opiate, Urine Neg (Neg); Phencyclidine, Urine Neg (Neg)
--- NOTE | 2021-06-30 22:05 | Emergency Department Note ---
ED Visit Note This patient was signed out to me by Dr. Oglesby pending mental health evaluation once he is sober. The patient was seen by the mental health director of casework once he was clinically sober. He does wish to pursue inpatient psychiatric care for depression and suicidal ideation. Bed search is currently underway. I did sign the patient out to Dr. Jordan at change of shift. . : Alcohol intoxication Qualifiers: Complication of substance-induced condition: uncomplicated Qualified Code(s): F10.920 - Alcohol use, unspecified with intoxication, uncomplicated
--- NOTE | 2021-06-30 23:31 | Emergency Department Note ---
ED Visit Note 2229: Signout from Dr. Yeager. 25-year-old male. Intoxicated. Wanted inpatient psychiatric help. Patient is currently 201. [phone]: Awaiting psychiatric placement. Signout from Dr. Baron. . : Alcohol intoxication Qualifiers: Complication of substance-induced condition: uncomplicated Qualified Code(s): F10.920 - Alcohol use, unspecified with intoxication, uncomplicated
--- NOTE | 2021-07-01 06:32 | Emergency Department Note ---
ED Visit Note Patient signed out to me at change of shift from Dr. Jordan. Patient has been seen and evaluated initially yesterday, medically cleared at time of signout. Patient with history of alcohol use and suicidal ideation. Prior suicide attempt. Patient is voluntary at this time. No issues reported to me overnight. Awaiting placement. Signed out to Dr. Pa at change of shift. . : Alcohol intoxication Qualifiers: Complication of substance-induced condition: uncomplicated Qualified Code(s): F10.920 - Alcohol use, unspecified with intoxication, uncomplicated
[2021-07-01] MEDS ORDERED: NICOTINE 14 MG/24 HR PATCH TD SCH (12:30)
--- NOTE | 2021-07-01 22:18 | Emergency Department Note ---
ED Visit Note The patient was accepted at [facility]. No issues during my shift. . : Alcohol intoxication Qualifiers: Complication of substance-induced condition: uncomplicated Qualified Code(s): F10.920 - Alcohol use, unspecified with intoxication, uncomplicated
[2021-07-01] MEDS ORDERED: ACETAMINOPHEN 325 MG TAB PO PRN (22:31)
[2021-07-01] MEDS ORDERED: ALUMINUM/MAGNESIUM SUSP 30 ML UDC PO PRN (22:31)
[2021-07-01] MEDS ORDERED: hydrOXYzine HCl 25 MG TAB PO PRN ×2 (22:31)
[2021-07-01] MEDS ORDERED: MAGNESIUM HYDROXIDE SUSP 30 ML UDC PO PRN (22:31)
[2021-07-01] MEDS ORDERED: SODIUM CHLORIDE 0.65% NA SOLN 45 ML (OCEAN) PRN (22:31)
[2021-07-01] MEDS ORDERED: LORazepam 1 MG TAB PO PRN (22:35)
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
[2021-07-02] MEDS ORDERED: NICOTINE 14 MG/24 HR PATCH TD SCH (13:00)
[2021-07-02] MEDS: NICOTINE 21 MG/24 HR TDSY TD SCH (15:11)
[2021-07-02] MEDS: hydrOXYzine HCl 25 MG TAB PO SCH (20:40)
[2021-07-03] MEDS: NICOTINE 21 MG/24 HR TDSY TD SCH (08:49)
[2021-07-03] MEDS ORDERED: buPROPion SR 100 MG TABCR PO SCH (09:00)
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
[2021-07-03] MEDS: hydrOXYzine HCl 25 MG TAB PO SCH (21:22)
[2021-07-04] MEDS: NICOTINE 21 MG/24 HR TDSY TD SCH (07:49)
[2021-07-04] MEDS ORDERED: buPROPion SR 150 MG TABCR PO SCH (09:00)
--- NOTE | 2021-07-04 10:13 | Discharge Summary ---
Date of Service July 04, 2021 History of Present Illness Layo reports that he failed to follow through on therapy services after leaving [place] 6 months ago and he has had a negative experience with antidepressants so far. Things "gradually got worse again" as his circumstances haven't changed. He lives with his grandparents who are "old school" and his grandmother in particular gets "all bipolar" meaning emotional and compares him to his father who 2 years ago from an OD. This makes Layo uncomfortable and he stays in his room and barely sees them in passing. 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 He works 4 pm to 4 am and has DFA and staying asleep, sometimes less than 1-4 hours/night. He reports losing motivation and hope. He started to have "those thoughts again" about suicide and came to ED for assessment. He has given varying reports of the amount he drinks on a daily basis and whether or not he has experienced withdrawal. He does get a "tightness" in his chest that is different from his asthma (hasn't used inhaler for years) and then worries about dying. It is usually triggered by his depression. Now states he had 4 of the large 4 Locos and does sound like he drinks most days. He was in the ED for >24 hrs awaiting placement and did not exhibit any withdrawal despite MOOK 343 on arrival to ED. AWSS protocol was 1 this am. He denies any periods of elevated or persistently elevated mood that would suggest jourdan. He denies other drug use but states he had a medical MJ card that . Physical Exam Psychiatric See admission H&P and DOD assessment. Vital Signs (Past 24 Hours) Last Vital Signs Temp 37 C 07/04/21 06:43 Pulse 55 L 07/04/21 06:44 Resp 16 07/04/21 06:43 BP 121/79 07/04/21 06:44 Pulse Ox 98 07/01/21 22:38 Principal Diagnosis major depressive disorder Psychiatric Data See daily stay summary. In short, safety was maintained and the patient was cooperative with care. Medication changes included a trial of Wellbutrin and they tolerated this well. He declined a family session as plans to stay with friends and get his own apartment in [place] within the next week. He will return home only to crab picker his clothes/etc. A safety plan was completed prior to discharge. Day of Discharge Assessment Today the patient voices readiness for discharge. They note improvement in mood and deny thoughts to harm self or others. Thoughts remain organized and they are improved from admission. There is no evidence of psychosis. They agree to take mediations as prescribed and keep follow-up appointments. They are stable for discharge to outpatient level of care. Advance Directives Advance Directives Information Provided: Yes Advance Directives: No Mental Health Advance Directive: No Advance Directives on File: No Living Will: No Power of Dish Technician: No Advance Directives Reason:: Declines as Mental Health Visit. Risk Factors Assessment Male: Yes : Yes Do You Have Access To A Gun?: No Mental Health Diagnoses: Yes Previous Attempt: Yes Previous Psychiatric Hospitalization: Yes Protective Factors Assessment Responsible for Young Children: No Employed: Yes ([employer]) Stable Relationships: Yes (identifies some friends in [employer]) Supportive Family: No Tobacco Cessation at Discharge Tobacco Cessation Medication Prescribed at Discharge: Offered & Pt Refused Total Time Total Time Spent: Greater Than 30 Minutes Total Time Includes: Examination of the patient, Discharge Planning and Medication Reconciliation Discharge Data Lab Results 06/30/21 06/30/21 06/30/21 08:05 08:05 08:05 WBC RBC Hgb Hct MCV MCH MCHC RDW Std Deviation RDW Coeff of [place] Plt Count MPV Immature Gran % (Auto) Neut % (Auto) Lymph % (Auto) [place] % (Auto) Eos % (Auto) Baso % (Auto) Neut # (Auto) Lymph # (Auto) [place] # (Auto) Eos # (Auto) Baso # (Auto) Immature Gran # (Auto) Sodium Potassium Chloride Carbon Dioxide Anion Gap BUN Creatinine Est Cr Clr Drug Dosing Est GFR ( Amer) Est GFR (Non-Af Amer) BUN/Creatinine Ratio Glucose Calcium Total Bilirubin AST ALT Alkaline Phosphatase Total Protein Albumin Globulin Albumin/Globulin Ratio TSH Urine Color Yellow Urine Appearance Clear Urine pH 6.0 Ur Specific [place] 1.005 Urine Protein Negative Urine Glucose (UA) Negative Urine Ketones Negative Urine Blood Negative Urine Nitrite Negative Urine Bilirubin Negative Urine Urobilinogen Negative Ur Leukocyte Esterase Negative Salicylates Urine Opiates Screen Neg Ur Methadone, Qual Neg Acetaminophen Urine Barbiturates Neg Ur Phencyclidine (PCP) Neg U Amphetamin/Meth Scrn Neg MDMA (Ecstasy) Screen Neg U Benzodiazepines Scrn Neg Ur Cocaine Metabolite Neg U Marijuana (THC) Screen Neg Ethyl Alcohol mg/dL SARS-CoV-2, RNA, NAAT NEGATIVE 06/30/21 06/30/21 06/30/21 08:13 08:13 08:13 WBC 7.31 RBC 5.06 Hgb 14.7 Hct 43.4 MCV 85.8 MCH 29.1 MCHC 33.9 RDW Std Deviation 42.8 RDW Coeff of [place] 13.8 Plt Count 259 MPV 9.1 Immature Gran % (Auto) 0.1 Neut % (Auto) 51.5 Lymph % (Auto) 40.2 Sauk % (Auto) 4.5 Eos % (Auto) 3.4 Baso % (Auto) 0.3 Neut # (Auto) 3.76 Lymph # (Auto) 2.94 Sauk # (Auto) 0.33 Eos # (Auto) 0.25 Baso # (Auto) 0.02 Immature Gran # (Auto) 0.01 Sodium 140 Potassium 3.6 Chloride 102 Carbon Dioxide 31 Anion Gap 7 BUN 15 Creatinine 1.04 Est Cr Clr Drug Dosing 111.3 Est GFR ( Amer) 115.1 Est GFR (Non-Af Amer) 99.3 BUN/Creatinine Ratio 14.4 Glucose 68 L Calcium 9.5 Total Bilirubin 0.4 AST 44 H ALT 25 Alkaline Phosphatase 57 Total Protein 7.7 Albumin 4.8 Globulin 2.9 Albumin/Globulin Ratio 1.7 TSH 0.793 Urine Color Urine Appearance Urine pH Ur Specific [place] Urine Protein Urine Glucose (UA) Urine Ketones Urine Blood Urine Nitrite Urine Bilirubin Urine Urobilinogen Ur Leukocyte Esterase Salicylates Urine Opiates Screen Ur Methadone, Qual Acetaminophen Urine Barbiturates Ur Phencyclidine (PCP) U Amphetamin/Meth Scrn MDMA (Ecstasy) Screen U Benzodiazepines Scrn Ur Cocaine Metabolite U Marijuana (THC) Screen Ethyl Alcohol mg/dL SARS-CoV-2, RNA, NAAT 06/30/21 06/30/21 08:13 08:13 WBC RBC Hgb Hct MCV MCH MCHC RDW Std Deviation RDW Coeff of [place] Plt Count MPV Immature Gran % (Auto) Neut % (Auto) Lymph % (Auto) [place] % (Auto) Eos % (Auto) Baso % (Auto) Neut # (Auto) Lymph # (Auto) [place] # (Auto) Eos # (Auto) Baso # (Auto) Immature Gran # (Auto) Sodium Potassium Chloride Carbon Dioxide Anion Gap BUN Creatinine Est Cr Clr Drug Dosing Est GFR ( Amer) Est GFR (Non-Af Amer) BUN/Creatinine Ratio Glucose Calcium Total Bilirubin AST ALT Alkaline Phosphatase Total Protein Albumin Globulin Albumin/Globulin Ratio TSH Urine Color Urine Appearance Urine pH Ur Specific [place] Urine Protein Urine Glucose (UA) Urine Ketones Urine Blood Urine Nitrite Urine Bilirubin Urine Urobilinogen Ur Leukocyte Esterase Salicylates < 3.0 L Urine Opiates Screen Ur Methadone, Qual Acetaminophen < 3 L Urine Barbiturates Ur Phencyclidine (PCP) U Amphetamin/Meth Scrn MDMA (Ecstasy) Screen U Benzodiazepines Scrn Ur Cocaine Metabolite U Marijuana (THC) Screen Ethyl Alcohol mg/dL 343.3 H SARS-CoV-2, RNA, NAAT Hospital Course (1) Depression with suicidal ideation: 07/03/21: titrate Wellbutrin to 150 mg SR qam. 07/02/21: [facility] on q15 min checks (behavioral with suicide precautions) for safety. The patient will participate in group, recreational, and milieu therapies and will be offered additional individual and family sessions as clinically appropriate. He is requesting Vistaril scheduled for sleep as longstanding issue and sleep phase shift at home. Risks/benefits/alternatives reviewed re: antidepressants for the treatment of depression and/or anxiety. The patient agreed to a trial of Wellbutrin. Will start Wellbutrin SR 100 mg po qam and then titrate as tolerated. Continue to elaborate his ETOH use and impact on depression. Mental Health & Subst Abuse Tx Therapist Name of Therapist: Chris Guzman Therapist's Date of Therapist Appointment: 07/10/21 Time of Therapist Appointment: 1:30 p.m. Therapy Appointment Comment: [address], [address], [place] Post Discharge Appointments Primary Care Physician Name Of Family Doctor: Isabell Barahona PA-C Primary Care Date of Appointment with PCP: 07/08/21 Time of Appointment with PCP: 4:05 PM Provider Appointment Comment: Letitia Duncan Smoking Cessation Counseling Tobacco Cessation Medication Prescribed at Discharge: Offered & Pt Refused Contact Information Discharge Discharge Address: [address] [place] [address] Discharge Plan Discharge Items Patient Disposition: Home - Self-Care Reason For Visit: DEPRESSION, NOS Discharge Diagnosis: major depressive disorder Activity: Resume your previous activity Non-emergency contact: Primary Care Provider, Psychiatrist and Therapist Call non-emergency contact if: you have any medication questions and your symptoms worsen Follow-up/Referrals: PCP,NO [Primary Care Provider] - Diet: Regular Addtl Attending Provider Instructions: SPECIAL CARE INSTRUCTIONS: 1. Follow through with your scheduled aftercare appointments. If unable to keep an appointment, please call to reschedule. 2. Take your medication only as prescribed. Medication should not be changed or stopped without the approval of your doctor. In the event of worsening symptoms or concerns about side effects, contact your doctor immediately. 3. Utilize new healthy coping skills, anger management skills, and stress management skills learned during your hospitalization. Journal feelings and process them with a support person. Identify stressors or situations that may result in relapse, deterioration or inappropriate behaviors and develop a plan to deal with those issues. 4. If your coping skills are ineffective and you are in crisis, contact your outpatient providers for direction. If unable to reach your providers, please call the [facility] CRISIS LINE AT , go to the [facility] walk-in center at [address], [address], [place], or go to the closest Emergency Room. 5. Avoid alcohol and un-prescribed drugs. 6. You have been provided with the Mental Health Advance Directives Pamphlet for your review. 7. Your condition is stable for discharge to outpatient level of care, but recovery is an ongoing process. Ifthoughts to harm yourself or others return, follow the safety plan developed during your stay. Planning for a safe return home includes securing weapons. Our treatment team recommends weaponsbe removed from the home until your outpatient provider reassesses your progress. In rare cases where the items themselvescannot be removed, guns and ammunitionshould be secured separatelyand keys stored by a reliable personoutside of the home. If you were admitted on an involuntary commitment, the police or other legal authorities may be involved in this process. AFTERCARE APPOINTMENTS: * Please call your insurance company prior to your scheduled appointment to confirm your aftercare providers are covered. Take your insurance information to your appointments. WHO TO CALL AND WHEN: Medical Emergencies: For questions or emergencies related to your hospital stay, please contact the Inpatient Behavioral Health Unit at [phone]. A senior [employer] network engineer is on-call 22/12 for the Behavioral Health Unit for emergencies At any time you feel your situation is an emergency, you may also call 911 immediately. Pending Studies at Discharge: No Stand-Alone Forms: [facility], Smoking Cessation Medications and DC Order Prescriptions: New bupropion HCl [Wellbutrin XL] 150 mg tablet extended release 24 hr 150 mg PO QAM Qty: 30 RF: 0 Discharge Orders: Discharge Order (Routine); Ordered 07/04/21 Ordered By: Angélica Strauss Admission Data Admit Date/Time: 07/01/21 22:24 Attending Provider: Angélica Strauss Admit Provider: Angélica Strauss Primary Care Provider: PCP,NO Other Interventions: Discharge Summary Assessment (RN) Last Done: 07/04/21 10:21 PSY Interdisciplinary Discharge Planning Last Done: 07/04/21 10:21 Coding Level of Care Code 92307 D/C day mgmt > 30 min Diagnoses Depression with suicidal ideation F32.A; R45.851
== END 2021-07-04 11:43 | disposition home or self-care (01) | DRG 881 ==
LOC: ED 07:43 → 3S 07-01 22:10

== ENCOUNTER 2021-11-02 13:43 | Observation (INO) ==
[2021-11-02] MEDS ORDERED: LORazepam 2 MG/1 ML VIAL IV STA ×2 (14:29→22:24)
[2021-11-02] MEDS ORDERED: MULTI-VITAMIN INFUSION 10 ML, THIAMINE HCL 100 MG, FOLIC ACID 1 MG in SODIUM CHLORIDE 0... IV ONE (14:29)
--- NOTE | 2021-11-02 14:39 | Emergency Department Note ---
History of Present Illness General Chief complaint: Vomiting Stated complaint: TREMORS,MEMORY LOSS,VOMITING BLOOD Time Seen by Provider: 11/02/21 14:16 Source: patient and family (Girlfriend who is at the bedside) Mode of arrival: ambulatory Limitations: no limitations History of Present Illness Maximum Pain Intensity: 5 This patient is a 26-year-old male who comes in after having alcohol abuse and vomiting. He says he has been drinking heavily over the the last several weeks to months. He started having some hemoptysis today after vomiting a lot he says he vomits essentially every day. He has had hemoptysis before after drinking heavily. He also uses marijuana 2-3 times a day. His girlfriend thinks his memory has gotten worse over the last year or so he is forgetting things. He said no fall or trauma he has a mild headache now which he says thinks is from withdrawing. He gets shaky when he does not drink but he has never had any seizures that he is aware of denies any suicidal ideations at present but he does get them when he drinks. He thought about shooting himself a month and a half ago but the gun was not loaded. He feels mildly lightheaded and dizzy no shortness of breath no blood or melena stool no fall or trauma. He was supposed to be on medication for depression and anxiety but has not seen a doctor in several years and is on no meds at present Home Medications Medication Instructions Recorded Confirmed Type No Known Home Medications 11/02/21 11/02/21 History Allergies Allergy/AdvReac Type Severity Reaction Status Date / Time aspirin Allergy Intermediate Hives Verified 11/02/21 15:00 ibuprofen Allergy Intermediate HIVES Verified 11/02/21 15:00 Penicillins Allergy Intermediate HIVES Verified 11/02/21 15:00 Past Med/Surg History Medical History Alcohol intoxication Asthma Depression with suicidal ideation Surgical History Hx of appendectomy Social History Smoking Status: Current every day smoker Tobacco Type: Cigarettes Preferred Language: Tajik Communication Ability: Effective Machine Brusher Required: No Beliefs That Will Affect Care: None Feels Safe at Home: Yes Assistive Devices: Glasses Review of Systems A total of 10 systems reviewed and were otherwise negative Physical Exam Vital Signs Vital Signs - 24 hr 11/02/21 13:49 11/02/21 14:15 11/02/21 16:00 Temperature 36.4 C L Temperature Source Temporal Artery Scan Pulse Rate 93 H Pulse Rate [Apical] 75 Pulse Rhythm Regular Pulse Rhythm [Apical] Pulse Strength Normal Pulse Strength [Apical] Respiratory Rate 18 16 16 Respiratory Effort / Characteristics Non-Labored Spontaneous Non-Labored Respiratory Depth Normal Normal Respiratory Pattern Regular Blood Pressure 134/71 Blood Pressure [Right Arm] 139/110 H 123/77 Blood Pressure Mean 92 Blood Pressure Mean [Right Arm] 119 92 Blood Pressure Position Sitting Blood Pressure Position [Right Arm] Lying Pulse Oximetry 97 99 97 Oxygen Delivery Method Room Air Room Air Sepsis Recent Fever Within 48 Hours No Sepsis New/Unexplained Change in Mental Status No Sepsis Action Taken by Nursing No Action Required 11/02/21 17:25 11/02/21 18:32 11/02/21 22:28 Temperature Temperature Source Pulse Rate Pulse Rate [Apical] 62 61 69 Pulse Rhythm Pulse Rhythm [Apical] Regular Regular Pulse Strength Pulse Strength [Apical] Normal Respiratory Rate 18 20 18 Respiratory Effort / Characteristics Non-Labored Non-Labored Respiratory Depth Normal Normal Respiratory Pattern Blood Pressure Blood Pressure [Right Arm] 123/77 111/61 112/70 Blood Pressure Mean Blood Pressure Mean [Right Arm] 92 77 84 Blood Pressure Position Blood Pressure Position [Right Arm] Pulse Oximetry 98 96 97 Oxygen Delivery Method Room Air Room Air Nasal Cannula Sepsis Recent Fever Within 48 Hours Sepsis New/Unexplained Change in Mental Status Sepsis Action Taken by Nursing General: Well developed well nourished young male who appears in no acute distress, breathing comfortably on room air. Normal speech nonslurred HEENT: Normal cephalic atraumatic. Pupils are equal round and reactive to light. Extraocular movements are intact. Oropharynx is pink with moist mucous membranes. No swelling of the mouth lips or tongue. Neck: Supple with a midline trachea. No meningeal signs or stiffness, no JVD or bruits. No Stridor. Chest: Clear to auscultation bilaterally. No wheezes or rhonchi. No increased work of breathing. Heart: Regular rate and rhythm without murmurs or gallops. Abdomen: Soft nontender, nondistended without rebound guarding or rigidity. Extremities: No cyanosis clubbing or edema. No calf tenderness or assymetry Spine/Back. Non tender to palpation. No CVA tenderness Skin: Good turgor without rashes. Neurologic exam: Cranial nerves two through 12 are intact. Motor and sensation are intact and symmetrical throughout. No tremor. Finger-nose intact. Course Administered Medications Discontinued Medications Multivitamins 10 ml/ Thiamine HCl 100 mg/ Folic Acid 1 mg/Sodium Chloride 1,011.2 mls @ 1,011.2 mls/hr IV .Q1H ONE Stop: 11/02/21 15:28 Last Infusion: 11/02/21 16:31 Dose: 0 mls/hr Documented by: [id number] Admin: 11/02/21 15:11 Dose: 1,011.2 mls/hr Documented by: [id number] Lorazepam (Lorazepam 2 Mg/1 Ml Vial) 1 mg IV NOW STA; Protocol Stop: 11/02/21 14:30 Last Admin: 11/02/21 15:11 Dose: 1 mg Documented by: [id number] Lorazepam (Lorazepam 2 Mg/1 Ml Vial) 1 mg IV NOW STA; Protocol Stop: 11/02/21 22:25 Last Admin: 11/02/21 22:32 Dose: 1 mg Documented by: [id number] Medical Decision Making Differential Diagnosis Hematemesis, Skye-Kingsley tear, GI bleed, peptic ulcer disease, gastritis, alcohol abuse, alcohol withdrawal, marijuana use/abuse, depression, anxiety, cardiac disease, electrolyte or metabolic abnormality, infection Medical Records Attestation: I reviewed the patient's medical records. Home Medications Current Medication List: was personally reviewed by me Laboratory Data Attestation: I reviewed the patient's lab results. Result diagrams: 11/02/21 15:05 11/02/21 15:05 Lab Results 11/02/21 11/02/21 11/02/21 Range/Units 15:05 15:05 15:05 WBC 5.84 (4.8-10.8) K/uL RBC 5.08 (4.7-6.1) M/uL Hgb 14.6 (14.0-18.0) g/dL Hct 42.5 (42-52) % MCV 83.7 (80-100) fL MCH 28.7 (25-34) pg MCHC 34.4 (32-36) g/dL RDW Std Deviation 41.4 (36.4-46.3) fL RDW Coeff of [place] 13.6 (11.5-14.5) % Plt Count 300 (130-400) K/uL MPV 9.2 (7.4-10.4) fL Immature Gran % (Auto) 0.2 % Neut % (Auto) 61.4 % Lymph % (Auto) 30.7 % [place] % (Auto) 5.5 % Eos % (Auto) 1.9 % Baso % (Auto) 0.3 % Neut # (Auto) 3.59 (1.4-6.5) K/uL Lymph # (Auto) 1.79 (1.2-3.4) K/uL [place] # (Auto) 0.32 (0.11-0.59) K/uL Eos # (Auto) 0.11 (0-0.5) K/uL Baso # (Auto) 0.02 (0-0.2) K/uL Immature Gran # (Auto) 0.01 (0.00-0.02) K/uL PT 11.1 (9.0-12.0) Seconds INR 1.0 (0.9-1.1) APTT 26.4 (21.0-31.0) Seconds PTT Ratio 1.0 Sodium 140 (136-145) mmol/L Potassium 3.9 (3.5-5.1) mmol/L Chloride 103 (98-107) mmol/L Carbon Dioxide 26 (21-32) mmol/L Anion Gap 11 (3-11) BUN 13 (6-23) mg/dl Creatinine 1.10 (0.6-1.4) mg/dl Est Cr Clr Drug Dosing Not Reportable Est GFR ( Amer) 106.8 ml/min Est GFR (Non-Af Amer) 92.2 ml/min BUN/Creatinine Ratio 11.8 (10-20) Glucose 95 (70-99(Fasting)) mg/dl Calcium 9.3 (8.5-10.1) mg/dl Total Bilirubin 1.0 (0.2-1.0) mg/dl AST 37 (13-39) U/L ALT 18 (7-52) U/L Alkaline Phosphatase 52 (34-104) U/L Total Protein 7.5 (6.0-8.3) gm/dl Albumin 4.7 (3.4-5.0) gm/dl Globulin 2.8 (2.5-4.0) gm/dl Albumin/Globulin Ratio 1.7 (0.9-2) TSH (0.300-4.500) uIu/ml Salicylates (3.0-30) mg/dl Acetaminophen (10-30) ug/ml Ethyl Alcohol mg/dL (<10.0) mg/dl SARS-CoV-2, RNA, NAAT (NEGATIVE) 11/02/21 11/02/21 11/02/21 Range/Units 15:05 15:05 15:05 WBC (4.8-10.8) K/uL RBC (4.7-6.1) M/uL Hgb (14.0-18.0) g/dL Hct (42-52) % MCV (80-100) fL MCH (25-34) pg MCHC (32-36) g/dL RDW Std Deviation (36.4-46.3) fL RDW Coeff of [place] (11.5-14.5) % Plt Count (130-400) K/uL MPV (7.4-10.4) fL Immature Gran % (Auto) % Neut % (Auto) % Lymph % (Auto) % [place] % (Auto) % Eos % (Auto) % Baso % (Auto) % Neut # (Auto) (1.4-6.5) K/uL Lymph # (Auto) (1.2-3.4) K/uL [place] # (Auto) (0.11-0.59) K/uL Eos # (Auto) (0-0.5) K/uL Baso # (Auto) (0-0.2) K/uL Immature Gran # (Auto) (0.00-0.02) K/uL PT (9.0-12.0) Seconds INR (0.9-1.1) APTT (21.0-31.0) Seconds PTT Ratio Sodium (136-145) mmol/L Potassium (3.5-5.1) mmol/L Chloride (98-107) mmol/L Carbon Dioxide (21-32) mmol/L Anion Gap (3-11) BUN (6-23) mg/dl Creatinine (0.6-1.4) mg/dl Est Cr Clr Drug Dosing Est GFR ( Amer) ml/min Est GFR (Non-Af Amer) ml/min BUN/Creatinine Ratio (10-20) Glucose (70-99(Fasting)) mg/dl Calcium (8.5-10.1) mg/dl Total Bilirubin (0.2-1.0) mg/dl AST (13-39) U/L ALT (7-52) U/L Alkaline Phosphatase (34-104) U/L Total Protein (6.0-8.3) gm/dl Albumin (3.4-5.0) gm/dl Globulin (2.5-4.0) gm/dl Albumin/Globulin Ratio (0.9-2) TSH 0.497 (0.300-4.500) uIu/ml Salicylates < 3.0 L (3.0-30) mg/dl Acetaminophen < 3 L (10-30) ug/ml Ethyl Alcohol mg/dL 237.2 H (<10.0) mg/dl SARS-CoV-2, RNA, NAAT (NEGATIVE) 11/02/21 Range/Units 15:54 WBC (4.8-10.8) K/uL RBC (4.7-6.1) M/uL Hgb (14.0-18.0) g/dL Hct (42-52) % MCV (80-100) fL MCH (25-34) pg MCHC (32-36) g/dL RDW Std Deviation (36.4-46.3) fL RDW Coeff of [place] (11.5-14.5) % Plt Count (130-400) K/uL MPV (7.4-10.4) fL Immature Gran % (Auto) % Neut % (Auto) % Lymph % (Auto) % [place] % (Auto) % Eos % (Auto) % Baso % (Auto) % Neut # (Auto) (1.4-6.5) K/uL Lymph # (Auto) (1.2-3.4) K/uL [place] # (Auto) (0.11-0.59) K/uL Eos # (Auto) (0-0.5) K/uL Baso # (Auto) (0-0.2) K/uL Immature Gran # (Auto) (0.00-0.02) K/uL PT (9.0-12.0) Seconds INR (0.9-1.1) APTT (21.0-31.0) Seconds PTT Ratio Sodium (136-145) mmol/L Potassium (3.5-5.1) mmol/L Chloride (98-107) mmol/L Carbon Dioxide (21-32) mmol/L Anion Gap (3-11) BUN (6-23) mg/dl Creatinine (0.6-1.4) mg/dl Est Cr Clr Drug Dosing Est GFR ( Amer) ml/min Est GFR (Non-Af Amer) ml/min BUN/Creatinine Ratio (10-20) Glucose (70-99(Fasting)) mg/dl Calcium (8.5-10.1) mg/dl Total Bilirubin (0.2-1.0) mg/dl AST (13-39) U/L ALT (7-52) U/L Alkaline Phosphatase (34-104) U/L Total Protein (6.0-8.3) gm/dl Albumin (3.4-5.0) gm/dl Globulin (2.5-4.0) gm/dl Albumin/Globulin Ratio (0.9-2) TSH (0.300-4.500) uIu/ml Salicylates (3.0-30) mg/dl Acetaminophen (10-30) ug/ml Ethyl Alcohol mg/dL (<10.0) mg/dl SARS-CoV-2, RNA, NAAT NEGATIVE (NEGATIVE) Imaging Data Attestation: I personally reviewed and interpreted this imaging study as follows: My Impression: Chest x-rayno acute infiltrate, failure, pneumothorax seen Head CTno acute mass-effect or hemorrhage Radiologist's Impression: Head CT 11/02/21 14:29 CT head/brain wo con CLINICAL HISTORY: 26 years-old Male with lux, memory loss. Acute headache with memory loss TECHNIQUE: Multiple axial CT images of the head were obtained without contrast. A dose lowering technique was utilized adhering to the principles of ALARA. CT DOSE: 614.27 mGy.cm COMPARISON: Head CT 01/25/2014 FINDINGS: No acute intracranial hemorrhage, midline shift, intracranial mass, hydrocephalus, territorial ischemia or abnormal extra-axial collection. The calvarium is intact. Minimal mucosal thickening of the paranasal sinuses. The mastoid air cells are clear. Unremarkable soft tissues and orbits. IMPRESSION: No acute intracranial abnormality. ACT 112: Negative or not required by law. The above report was generated using voice recognition software. It may contain grammatical, syntax or spelling errors. Electronically signed by: Jose Boswell M.D. 11/02/2021 3:09 PM Chest X-Ray 11/02/21 14:30 XR chest 1V portable HISTORY: 26 years-old Male hematemsis COMPARISON: Chest radiographs 06/13/2015 TECHNIQUE: Portable AP view of the chest FINDINGS: The cardiomediastinal and hilar silhouettes are within normal limits. No pneumothorax, pleural effusion, airspace consolidation or overt pulmonary edema. Bones appear grossly intact. IMPRESSION: No acute process. ACT 112: Negative or not required by law. The above report was generated using voice recognition software. It may contain grammatical, syntax or spelling errors. Electronically signed by: Jose Boswell M.D. 11/02/2021 2:48 PM ECG Data Attestation: I personally reviewed and interpreted this ECG as follows: MDM Narrative This patient comes in as described above. He was placed on a net developer contract in room B12. He has a history of heavy alcohol use/alcoholism and marijuana use and he he vomits essentially every day. Today when he vomited he had some blood in it. He is had this before. He is never been treated for this before. He also is history depression anxiety has not taken any medications. IV access established and he was given a banana bag and he was given Ativan 1 mg IV to prevent withdrawal when I first saw him he does not appear to be significantly withdrawing but I wanted to avoid this. He was placed on a net developer contract, I did order CAT scan of his head given the fact that he has had some memory loss according to his girlfriend otherwise answered all questions appropriately for me and has a normal neurologic exam. He was reassessed frequently. He remained stable. His blood alcohol was elevated in the 200s. The rest of his labs were unremarkable. He has no white count to suggest infection and has no significant anemia. His chest x-ray is unremarkable. He is resting comfortably he was further evaluated by psychiatric case management team and the patient does want to be admitted. He was evaluated by mental health team and they are working on placement for possible alcohol treatment. The patient has remained stable and stable vital signs he did start to feel like he was withdrawing a little bit so I gave him another milligram of Ativan IV. He will be signed out to Dr. mAena foster, the food counselor doctor, who will follow-up on the recommendations and placement. Continuous cardiac monitoring: Orders placed in EMR for continuous cardiac monitoring. Upon my interpretation the patient was noted to be in normal sinus rhythm with rate of 73. Impression & Plan Alcohol abuse, daily use, Anxiety, Depression, Hematemesis, Lab test negative for COVID-19 virus Discharge Plan Visit Data Chief Complaint: Vomiting Stated Complaint: TREMORS,MEMORY LOSS,VOMITING BLOOD ED Provider: Tacho Smith Discharge Problem: Alcohol abuse, daily use, Anxiety, Depression, Hematemesis, Lab test negative for COVID-19 virus Forms Stand Alone Forms: My [facility] Prescriptions Prescriptions: No Action No Known Home Medications RF: 0 Referrals Referrals: PCP,NO [Primary Care Provider] -
--- NOTE | 2021-11-02 14:51 | XRay Report ---
XR chest 1V portable HISTORY: 26 years-old Male hematemsis COMPARISON: Chest radiographs 06/13/2015 TECHNIQUE: Portable AP view of the chest FINDINGS: The cardiomediastinal and hilar silhouettes are within normal limits. No pneumothorax, pleural effusi on, airspace consolidation or overt pulmonary edema. Bones appear grossly intact. IMPRESSION: No acute process. ACT 112: Negative or not required by law. The above report was generated using voice recognition software. It may contain grammatical, syntax o r spelling errors. Electronically signed by: Jose Boswell M.D. 11/02/2021 2:48 PM
--- NOTE | 2021-11-02 15:10 | CT Scan Report ---
CT head/brain wo con CLINICAL HISTORY: 26 years-old Male with lux, memory loss. Acute headache with memory loss TECHNIQUE: Multiple axial CT images of the head were obtained without contrast. A dose lowering tech nique was utilized adhering to the principles of ALARA. CT DOSE: 614.27 mGy.cm COMPARISON: Head CT 01/25/2014 FINDINGS: No acute intracranial hemorrhage, midline shift, intracranial mass, hydrocephalus, territorial ischem ia or abnormal extra-axial collection. The calvarium is intact. Minimal mucosal thickening of the paranasal sinuses. The mastoid air cells are clear. Unremarkable soft tissues and orbits. IMPRESSION: No acute intracranial abnormality. ACT 112: Negative or not required by law. The above report was generated using voice recognition software. It may contain grammatical, syntax o r spelling errors. Electronically signed by: Jose Boswell M.D. 11/02/2021 3:09 PM
[2021-11-02 15:34] LABS: Basophils # (auto) 0.02 K/uL (0-0.2); Basophils % (auto) 0.3 %; Eosinophils # (auto) 0.11 K/uL (0-0.5); Eosinophils % (auto) 1.9 %; Hematocrit (blood only) 42.5 % (42-52); Hemoglobin 14.6 g/dL (14.0-18.0); Immature Granulocytes # (auto) 0.01 K/uL (0.00-0.02); Immature Granulocytes % (auto) 0.2 %; Lymphocytes # (auto) 1.79 K/uL (1.2-3.4); Lymphocytes % (auto) 30.7 %; Mean Corpuscular Hemoglobin 28.7 pg (25-34); Mean Corpuscular Hgb Conc 34.4 g/dL (32-36); Mean Corpuscular Volume 83.7 fL (80-100); Mean Platelet Volume 9.2 fL (7.4-10.4); Monocytes # (auto) 0.32 K/uL (0.11-0.59); Monocytes % (auto) 5.5 %; Neutrophils # (auto) 3.59 K/uL (1.4-6.5); Neutrophils % (auto) 61.4 %; Platelet Count 300 K/uL (130-400); RDW Coefficient of Variation 13.6 % (11.5-14.5); RDW Standard Deviation 41.4 fL (36.4-46.3); Red Blood Count 5.08 M/uL (4.7-6.1); White Blood Count 5.84 K/uL (4.8-10.8)
[2021-11-02 15:40] LABS: Partial Thromboplastin Time 26.4 Seconds (21.0-31.0); Prothrombin Time 11.1 Seconds (9.0-12.0)
[2021-11-02 15:57] LABS: Acetaminophen < 3 ug/ml (10-30); Salicylate < 3.0 mg/dl (3.0-30)
[2021-11-02 15:58] LABS: Anion Gap 11 (3-11); Blood Urea Nitrogen 13 mg/dl (6-23); Carbon Dioxide 26 mmol/L (21-32); Chloride 103 mmol/L (98-107); Potassium 3.9 mmol/L (3.5-5.1); Sodium 140 mmol/L (136-145)
[2021-11-02 15:59] LABS: Alanine Aminotransferase 18 U/L (7-52); Albumin Globulin Ratio 1.7 (0.9-2); Albumin Level 4.7 gm/dl (3.4-5.0); Alkaline Phosphatase 52 U/L (34-104); Aspartate Aminotransferase 37 U/L (13-39); BUN Creatinine Ratio 11.8 (10-20); Calcium 9.3 mg/dl (8.5-10.1); Est GFR (African American) 106.8 ml/min; Est GFR (Non-African American) 92.2 ml/min; Globulin 2.8 gm/dl (2.5-4.0); Glucose 95 mg/dl (70-99(Fasting)); Total Protein 7.5 gm/dl (6.0-8.3)
--- NOTE | 2021-11-02 23:49 | Emergency Department Note ---
ED Visit Note The patient was evaluated by her psychiatric case management team and they were trying to place him for alcohol withdrawal. The immigration case manager asked if we would consider medical admission given the fact that he is required dosages of IV Ativan and is intermittently withdrawing. I think this is reasonable I discussed the case with Dr. Sebastian and she will see the patient in ER for these measures . : Depression Qualifiers: Depression Type: unspecified Qualified Code(s): F32.A - Depression, unspecified Hematemesis Qualifiers: Nausea presence: with nausea Qualified Code(s): K92.0 - Hematemesis
--- NOTE | 2021-11-03 00:59 | History & Physical Report ---
Date of Service November 03, 2021 Assessment & Plan (1) Alcohol withdrawal: Plan: Layo Cote is a 26-year-old male with past medical history of anxiety, depression and alcohol use who presents due to concerns over alcohol abuse and withdrawal. Alcohol withdrawal/abuse Received banana bag in ED Received Ativan 1 mg IV x2 Continue Ativan as needed per MARIA A S protocol High dose Thiamine and folate daily BMP in a.m. Patient requesting help with inpatient rehabilitation placement Psych consult placed CBC in a.m. in the context of hemoptysis more likely due to forceful repeated vomiting than significant GI bleeding -Protonix 40mg po daily Anxiety/depression Per patient, he has been diagnosed with these in the past and was prescribed medications but has not taken these in a long time As above, psych consulted DVT prophylaxis: No chemoprophylaxis indicated Diet: Regular Dispo: Med telemetry CODE STATUS: Full (2) Alcohol abuse, daily use: (3) Depression: (4) Anxiety: History of Present Illness Primary Care Provider: NO PCP Layo Cote is a 26-year-old male with past medical history of anxiety, depression and alcohol use who presents due to concerns over alcohol abuse and withdrawal. Patient admits to problem drinking fo the past few years, but has increased his alcohol intake significantly over the past weeks to months. He admits to daily vomiting, resulting in hemoptysis earlier today. He has had hemoptysis in the past after heavy drinking. Per patient's girlfriend, he does seem to have had worsening memory over the past year or so. Patient has never had any seizures from alcohol withdrawal, but has noticed shakiness and headaches when he does not regularly consume alcoholic beverages. Additionally, patient has had bam ral instances of suicidal ideation, which has at times been active. Currently denies suicidal ideation but does admit to SI regularly when intoxicated. In the ED, received a banana bag and required 2 doses of Ativan 1 mg IV. He was evaluated by ED psych and did request help with inpatient rehabilitation. His lab work was unremarkable, except for an alcohol level of 237.2 mg/dL. Head CT and chest x-ray were unremarkable. Patient denies chest pain, palpitations, shortness of breath, abdominal pain, weakness, numbness, active SI, HI, hallucinations. Allergies Allergy/AdvReac Type Severity Reaction Status Date / Time aspirin Allergy Intermediate Hives Verified 11/02/21 15:00 ibuprofen Allergy Intermediate HIVES Verified 11/02/21 15:00 Penicillins Allergy Intermediate HIVES Verified 11/02/21 15:00 Home Medications Medication Instructions Recorded Confirmed Type No Known Home Medications 11/02/21 11/02/21 History Past Med/Surg History Medical History Alcohol intoxication Asthma Depression with suicidal ideation Surgical History Hx of appendectomy Social History Smoking Status: Current every day smoker Tobacco Type: Cigarettes Preferred Language: [place] Leonean Communication Ability: Effective Private Household Worker Required: No Beliefs That Will Affect Care: None Feels Safe at Home: Yes Assistive Devices: Glasses Review of Systems Review of Systems: All systems reviewed & are unremarkable except as noted in HPI & below Physical Exam Physical Exam: GENERAL: A&Ox3. NAD. HEENT: PERRL, EOMI. Moist mucous membranes. NECK: No JVD. No lymphadenopathy. CHEST/LUNGS: CTAB A/P. No crackles, wheezes, rales, rhonchi. HEART: RRR. No m/g/r. No carotid bruits. ABDOMEN: NT/ND, soft. BS+ x4 EXTREMITIES: No cyanosis, no clubbing, no edema SKIN: Warm and dry. No rashes or lesions. PSYCHIATRIC: Euthymic affect, no SI, no pressured speech, no hallucinations NEUROLOGIC: No FND. CN II-XII grossly intact. Results & Data Results & Data ([facility]) Vital Signs (Past 12 Hours) Vital Signs Temp Pulse Pulse Resp BP BP Pulse Ox 11/02/21 22:28 69 18 112/70 97 11/02/21 18:32 61 20 111/61 96 11/02/21 17:25 62 18 123/77 98 11/02/21 16:00 75 16 123/77 97 11/02/21 14:15 16 139/110 H 99 11/02/21 13:49 36.4 C L 93 H 18 134/71 97 Laboratory Results Laboratory Results WBC 5.84 K/uL (4.8-10.8) 11/02/21 15:05 RBC 5.08 M/uL (4.7-6.1) 11/02/21 15:05 Hgb 14.6 g/dL (14.0-18.0) 11/02/21 15:05 Hct 42.5 % (42-52) 11/02/21 15:05 MCV 83.7 fL (80-100) 11/02/21 15:05 MCH 28.7 pg (25-34) 11/02/21 15:05 MCHC 34.4 g/dL (32-36) 11/02/21 15:05 RDW Std Deviation 41.4 fL (36.4-46.3) 11/02/21 15:05 RDW Coeff of [place] 13.6 % (11.5-14.5) 11/02/21 15:05 Plt Count 300 K/uL (130-400) 11/02/21 15:05 MPV 9.2 fL (7.4-10.4) 11/02/21 15:05 Immature Gran % (Auto) 0.2 % 11/02/21 15:05 Neut % (Auto) 61.4 % 11/02/21 15:05 Lymph % (Auto) 30.7 % 11/02/21 15:05 Stearns % (Auto) 5.5 % 11/02/21 15:05 Eos % (Auto) 1.9 % 11/02/21 15:05 Baso % (Auto) 0.3 % 11/02/21 15:05 Neut # (Auto) 3.59 K/uL (1.4-6.5) 11/02/21 15:05 Lymph # (Auto) 1.79 K/uL (1.2-3.4) 11/02/21 15:05 Stearns # (Auto) 0.32 K/uL (0.11-0.59) 11/02/21 15:05 Eos # (Auto) 0.11 K/uL (0-0.5) 11/02/21 15:05 Baso # (Auto) 0.02 K/uL (0-0.2) 11/02/21 15:05 Immature Gran # (Auto) 0.01 K/uL (0.00-0.02) 11/02/21 15:05 PT 11.1 Seconds (9.0-12.0) 11/02/21 15:05 INR 1.0 (0.9-1.1) 11/02/21 15:05 APTT 26.4 Seconds (21.0-31.0) 11/02/21 15:05 PTT Ratio 1.0 11/02/21 15:05 Sodium 140 mmol/L (136-145) 11/02/21 15:05 Potassium 3.9 mmol/L (3.5-5.1) 11/02/21 15:05 Chloride 103 mmol/L (98-107) 11/02/21 15:05 Carbon Dioxide 26 mmol/L (21-32) 11/02/21 15:05 Anion Gap 11 (3-11) 11/02/21 15:05 BUN 13 mg/dl (6-23) 11/02/21 15:05 Creatinine 1.10 mg/dl (0.6-1.4) 11/02/21 15:05 Est Cr Clr Drug Dosing Not Reportable 11/02/21 15:05 Est GFR ( Amer) 106.8 ml/min 11/02/21 15:05 Est GFR (Non-Af Amer) 92.2 ml/min 11/02/21 15:05 BUN/Creatinine Ratio 11.8 (10-20) 11/02/21 15:05 Glucose 95 mg/dl (70-99(Fasting)) 11/02/21 15:05 Calcium 9.3 mg/dl (8.5-10.1) 11/02/21 15:05 Total Bilirubin 1.0 mg/dl (0.2-1.0) 11/02/21 15:05 AST 37 U/L (13-39) 11/02/21 15:05 ALT 18 U/L (7-52) 11/02/21 15:05 Alkaline Phosphatase 52 U/L (34-104) 11/02/21 15:05 Total Protein 7.5 gm/dl (6.0-8.3) 11/02/21 15:05 Albumin 4.7 gm/dl (3.4-5.0) 11/02/21 15:05 Globulin 2.8 gm/dl (2.5-4.0) 11/02/21 15:05 Albumin/Globulin Ratio 1.7 (0.9-2) 11/02/21 15:05 TSH 0.497 uIu/ml (0.300-4.500) 11/02/21 15:05 Salicylates < 3.0 mg/dl (3.0-30) L 11/02/21 15:05 Acetaminophen < 3 ug/ml (10-30) L 11/02/21 15:05 Ethyl Alcohol mg/dL 237.2 mg/dl (<10.0) H 11/02/21 15:05 SARS-CoV-2, RNA, NAAT NEGATIVE (NEGATIVE) 11/02/21 15:[address] 11/02/21 14:29 CT head/brain wo con CLINICAL HISTORY: 26 years-old Male with lux, memory loss. Acute headache with memory loss TECHNIQUE: Multiple axial CT images of the head were obtained without contrast. A dose lowering technique was utilized adhering to the principles of ALARA. CT DOSE: 614.27 mGy.cm COMPARISON: Head CT 01/25/2014 FINDINGS: No acute intracranial hemorrhage, midline shift, intracranial mass, hydrocephalus, territorial ischemia or abnormal extra-axial collection. The calvarium is intact. Minimal mucosal thickening of the paranasal sinuses. The mastoid air cells are clear. Unremarkable soft tissues and orbits. IMPRESSION: No acute intracranial abnormality. ACT 112: Negative or not required by law. The above report was generated using voice recognition software. It may contain grammatical, syntax or spelling errors. Electronically signed by: Jose Boswell M.D. 11/02/2021 3:09 PM Chest X-Ray 11/02/21 14:30 XR chest 1V portable HISTORY: 26 years-old Male hematemsis COMPARISON: Chest radiographs 06/13/2015 TECHNIQUE: Portable AP view of the chest FINDINGS: The cardiomediastinal and hilar silhouettes are within normal limits. No pneumothorax, pleural effusion, airspace consolidation or overt pulmonary edema. Bones appear grossly intact. IMPRESSION: No acute process. ACT 112: Negative or not required by law. The above report was generated using voice recognition software. It may contain grammatical, syntax or spelling errors. Electronically signed by: Jose Boswell M.D. 11/02/2021 2:48 PM Code Status & VTE Plan VTE Prophylaxis Plan VTE Prophylaxis will be ordered: Yes Supervising Physician Co-Signing Physician Notes patient seen and examined, chart reviewed, case discussed with Dr. Sahil Joe and I agree with the assessment and plan as above. In brief, patient is a 26yo male presenting with request for EtOH detox, nausea/vomiting, hematemesis. resting comfortably on exam. No tremors. Has received Ativan in ER +S1/S2, regular, no m/r/g Lungs CTA Abd soft, NT/ND, no masses/organomegaly or ascites Ext warm, well perfused, no clubbing/cyanosis or edema Labs and images reviewed Assessment/Plan -Tx for early EtOH withdrawal with Ativan per AWSS protocol -Presently no HI/SI -High dose thiamine given complaint of memory loss -Protonix daily - monitor for bleed -Psychiatry consultation appreciated Resident Activity Tracking Resident Involvement: Resident Care Provided Care Provided: Adult Hospital Medicine (1) Depression Depression Type: unspecified Qualified Code(s): F32.A - Depression, unspecified
--- NOTE | 2021-11-03 02:16 | Billing Data ---
Date of Service November 03, 2021 Coding Level of Care Code 58668 Initial Inpt Care Lvl 2
[2021-11-03] MEDS ORDERED: LORazepam 1 MG TAB PO PRN (03:07)
[2021-11-03] MEDS ORDERED: ONDANSETRON INJ 2 MG/ML 2 ML VIAL IV PRN (03:07)
[2021-11-03] MEDS: ACETAMINOPHEN 325 MG TAB PO PRN ×2 (03:45→08:01)
[2021-11-03] MEDS: THIAMINE HCL 500 MG in SODIUM CHLORIDE 0.9% 50 ML IV SCH ×2 (04:00→13:41)
[2021-11-03 05:47] LABS: Basophils # (auto) 0.01 K/uL (0-0.2); Basophils % (auto) 0.1 %; Eosinophils # (auto) 0.29 K/uL (0-0.5); Eosinophils % (auto) 4.1 %; Hemoglobin 13.5 g/dL (14.0-18.0); Immature Granulocytes # (auto) 0.02 K/uL (0.00-0.02); Immature Granulocytes % (auto) 0.3 %; Lymphocytes # (auto) 1.84 K/uL (1.2-3.4); Lymphocytes % (auto) 25.7 %; Mean Corpuscular Hemoglobin 28.4 pg (25-34); Mean Corpuscular Hgb Conc 33.8 g/dL (32-36); Mean Corpuscular Volume 84.2 fL (80-100); Mean Platelet Volume 9.2 fL (7.4-10.4); Monocytes # (auto) 0.44 K/uL (0.11-0.59); Monocytes % (auto) 6.1 %; Neutrophils # (auto) 4.56 K/uL (1.4-6.5); Neutrophils % (auto) 63.7 %; Platelet Count 244 K/uL (130-400); RDW Coefficient of Variation 13.4 % (11.5-14.5); RDW Standard Deviation 40.7 fL (36.4-46.3); Red Blood Count 4.75 M/uL (4.7-6.1); White Blood Count 7.16 K/uL (4.8-10.8)
[2021-11-03 06:12] LABS: BUN Creatinine Ratio 12.1 (10-20); Calcium 9.2 mg/dl (8.5-10.1); Creatinine Clr Calc Pharmacy 97.8 ml/min; Est GFR (African American) 110.5 ml/min; Est GFR (Non-African American) 95.3 ml/min; Potassium 3.6 mmol/L (3.5-5.1)
[2021-11-03] MEDS: chlordiazePOXIDE HCl 25 MG CAP PO SCH ×2 (08:21→13:41)
[2021-11-03] MEDS ORDERED: FOLIC ACID 1 MG TAB PO SCH (09:00)
[2021-11-03] MEDS ORDERED: PANTOprazole 40 MG TAB PO SCH (09:00)
[2021-11-03 09:03] LABS: Appearance Urine Cloudy (Clear); Bacteria Urine Automated Negative (Negative); Bilirubin Urine Negative (Negative); Blood Urine Negative (Negative); Cast Urine Automated 0 /lpf (0-5); Color Urine Yellow; Epithelial Cell Urine Auto 0-5 /lpf (0-5); Glucose Urine UA Negative (Negative); Ketones Urine Trace (Negative); Leukocyte Esterase Urine Negative (Negative); Nitrite Urine Negative (Negative); RBC Urine Automated 0-4 /hpf (0-4); Specific Gravity Urine 1.026 (1.000-1.030); Urobilinogen Urine Negative (Negative); WBC Urine Automated 0 /hpf (0-5)
[2021-11-03 09:04] LABS: Protein Urine 1+ (Negative)
[2021-11-03 10:12] LABS: Amphetamines+Metham, Urine Neg (Neg); Barbiturates, Urine Neg (Neg); Benzodiazepine, Urine Neg (Neg); Cocaine, Urine Neg (Neg); MDMA (Ecstacy), Urine Neg (Neg); Methadone, Urine Neg (Neg); Opiate, Urine Neg (Neg); Phencyclidine, Urine Neg (Neg)
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
--- NOTE | 2021-11-03 16:50 | Hospitalist Progress Note ---
Date of Service November 03, 2021 Assessment & Plan (1) Alcohol withdrawal: Plan: Patient admits to problem drinking fo the past few years, but has increased his alcohol intake significantly over the past weeks to months. He admits to daily vomiting, resulting in hemoptysis earlier today. He has had hemoptysis in the past after heavy drinking. Per patient's girlfriend, he does seem to have had worsening memory over the past year or so. Patient has never had any seizures from alcohol withdrawal, but has noticed shakiness and headaches when he does not regularly consume alcoholic beverages. Additionally, patient has had several instances of suicidal ideation, which has at times been active, upon presentation to alcohol level was 237 -Currently on a scheduled dose of Librium 50 mg every 6 hours Low CIWA score -Continue thiamine and folic acid -Downgrade to med surgery (2) Alcohol abuse, daily use: Plan: Plan as mentioned above (3) Depression: Plan: Seen by psychiatry (4) Anxiety: Plan: Seen by psychiatry Admission and Anticipated Discharge Date Admission Date: November 03, 2021 Subjective Feels better no evidence of withdrawal Physical Exam Physical Exam: GENERAL: A&Ox3. NAD. HEENT: PERRL, EOMI. Moist mucous membranes. NECK: No JVD. No lymphadenopathy. CHEST/LUNGS: CTAB A/P. No crackles, wheezes, rales, rhonchi. HEART: RRR. No m/g/r. No carotid bruits. ABDOMEN: NT/ND, soft. BS+ x4 EXTREMITIES: No cyanosis, no clubbing, no edema SKIN: Warm and dry. No rashes or lesions. PSYCHIATRIC: Euthymic affect, no SI, no pressured speech, no hallucinations NEUROLOGIC: No FND. CN II-XII grossly intact. Psychiatric: Orientation: alert and oriented x 3 Apperance: appropriately dressed and appropriately groomed Eye Contact: good eye contact Motor Behavior: no abnormal motor movements Speech: normal rate/rhythm/volume of speech Affect: + depressed affect Mood: + depressed mood Thought Process: goal directed thought process Thought Content: reality based without delusions Suicidal Thoughts: denies suicidal thoughts Homicidal Thoughts: denies homicidal thoughts Hallucinations: no auditory hallucinations and no visual hallucinations Cognition: attention grossly intact and language grossly intact Estimated Intelligence: consistent with education level Insight: + fair insight Judgement: + limited judgement Results & Data Results & Data ([facility]) Vital Signs (Past 12 Hours) Vital Signs Temp Pulse Pulse Resp BP Pulse Ox 11/03/21 14:48 36.7 C 49 L 18 130/84 97 11/03/21 11:17 36.9 C 47 L 18 135/83 97 11/03/21 08:00 59 L 11/03/21 07:35 36.8 C 60 20 151/55 H 97 11/03/21 06:06 66 PG Care Time/CCT Total # of Minutes Spent Total Time Spent with Patient: Total time spent is greater than 50% in coordination of care (as documented) at patient's floor/unit and/or counseling patient: Coding Level of Care Code 47176 Subseq Hosp Care Lvl 2 Diagnoses Alcohol withdrawal F10.239 Alcohol abuse, daily use F10.10 Depression F32.A Depression Type: unspecified Anxiety F41.9 (1) Depression Depression Type: unspecified Qualified Code(s): F32.A - Depression, unspecified
[2021-11-06 00:21] LABS: Marijuana Quant, GCMS Urine 285 ng/mL (<5)
== END 2021-11-03 20:15 | disposition left against medical advice (07) | DRG 894 ==
LOC: ED 13:43 → INTOOBSV 11-03 00:47 → SUATTDRO 11-03 00:47 → 2E 11-03 00:47 → 3W 11-03 12:15

== ENCOUNTER 2023-06-29 18:52 | Inpatient (IN) ==
--- NOTE | 2023-06-29 19:16 | ED Triage Note ---
Date of Service June 29, 2023 Provider in Triage Author: Jeovany Brewer A History of Present Illness This patient was briefly evaluated while in triage. An abbreviated physical exam was performed. This patient is a 27-year-old Male who presents to the ED for evaluation of mental health. "I need to talk to someone cause I"m in a bad place at the moment". Symptoms building up over time. Thoughts of harming self, with history of attempts in past. Physical Exam Limited Triage Exam: VITALS: Vitals are noted on the nurse's note and reviewed by myself. Vital signs stable. GENERAL: Well-developed, well-nourished, white male, who is in no acute distress and resting comfortably. Patient is cooperative with the examination. HEART: Regular rate and rhythm without murmurs gallops or rubs. LUNGS: Clear to auscultation bilaterally without wheezes, rales or rhonchi. No retractions or accessory muscle use. NEURO: Patient was alert and oriented to person place and time. CN II through XII grossly intact. Initial orders for labs and / or imaging were placed and patient was placed in the waiting area until a bed is available. Please see further documentation for the full ED course.
--- NOTE | 2023-06-29 19:27 | Emergency Department Note ---
Impression & Plan Alcohol dependence, Suicidal ideations ED Provider Note CHIEF COMPLAINT: Mental health evaluation HISTORY OF PRESENT ILLNESS: This 27-year-old male patient past medical history of alcohol use disorder, mood disorder, asthma presents to the emergency department with complaints of "dark thoughts." The patient states he has been depressed for many years, he does have a history of daily alcohol intake. Patient states he contemplating suicide. He states he has had several attempts in the past but were unsuccessful. He has had 3 inpatient stays for psychiatric issues. The patient denies any recent illnesses. He states he and his girlfriend just broke up several days ago, but he does not feel that that is a contributing factor to his symptoms currently. He states when he drinks alcohol he is more willing to speak about his feelings. Patient denies any suicide attempt this evening. He did was drinking alcohol prior to arrival. REVIEW OF SYSTEMS: A review of systems was performed with positives and pertinent negatives listed in the history of present illness. 10 systems were reviewed and are otherwise negative. ALLERGIES: see below MEDICATIONS: see below PMH: see below SOCIAL HISTORY: see below DDx: Mood disorder, alcohol intoxication, substance abuse, situational stressors, among others PHYSICAL EXAM: Vital signs reviewed. General: Well-appearing 27-year-old, in no significant distress. HEENT: No scleral icterus, PERRLA, neck supple. Atraumatic. Cardiovascular: Regular rate and rhythm, no extra sounds. Pulmonary: Clear to auscultation bilaterally, normal work of breathing. Abdomen: Soft, nontender, nondistended, positive bowel sounds. Musculoskeletal: Atraumatic, no peripheral edema. Psychiatric: Positive SI, negative HI Neurologic: Patient awake alert and oriented x 3, speech is clear Skin: Warm, dry, no rash EMERGENCY DEPARTMENT COURSE/MDM: This patient was evaluated and appeared to be in no significant distress. Patient was medically cleared and referred to the psychiatric caseworker for evaluation. The patient has been referred for inpatient care. Patient has been accepted to [facility] for inpatient psychiatric care. Patient signed a 201 and agrees. DISPOSITION: Admission Past Med/Surg History Medical History (Updated 07/05/23 @ 10:57 by Sapna Pa MD) Alcohol-induced depressive disorder with moderate or severe use disorder Alcohol use disorder, severe, dependence Alcohol withdrawal COVID-19 Viral meningitis (09/28/12) Urticaria Multiple abrasions Laceration of right hand Laceration of right hand Injury of extensor tendon of hand Contusion of head Acute appendicitis Lab test negative for COVID-19 virus Hematemesis Alcohol intoxication Depression with suicidal ideation Asthma Surgical History Hx of appendectomy Social History Smoking Status: Current every day smoker Tobacco Type: Cigarettes Cigarettes Per Day: .5; Second Hand Exposure: Yes; Do You Dip or Chew Tobacco: No; Hx Alcohol Use: Yes Alcohol type: beer and hard liquor Hx Substance Use: No Preferred Language: Armenian Communication Ability: Effective Assembler Piano Required: No Beliefs That Will Affect Care: None Current Living Situation: Other Current Living Situation Comment: lives with a friend Feels Safe at Home: Yes Gender Identity: Male Assistive Devices: None Allergies Allergies Allergy/AdvReac Type Severity Reaction Status Date / Time aspirin Allergy Intermediate Hives Verified 06/29/23 19:45 ibuprofen Allergy Intermediate HIVES Verified 06/29/23 19:45 Penicillins Allergy Intermediate HIVES Verified 06/29/23 19:45 Home Meds Previous Rx's Medication Instructions Recorded bupropion HCl 150 mg 24 hr tablet, 150 mg PO QAM 30 days #30 tabs 07/02/23 extended release naltrexone 50 mg tablet 50 mg PO DAILY 30 days #30 tabs 07/02/23 Results & Data (ED) Vital Signs Vital Signs - 24 hr 06/29/23 19:14 06/29/23 21:01 Temperature 36.8 C 36.4 C L Temperature Source Temporal Artery Scan Oral Pulse Rate 80 Pulse Rate [Left Finger] 60 Respiratory Rate 18 18 Respiratory Effort / Characteristics Non-Labored Spontaneous Non-Labored Spontaneous Respiratory Depth Normal Normal Respiratory Pattern Regular Blood Pressure 153/93 H Blood Pressure [Left Arm] 125/83 Blood Pressure Mean 113 Blood Pressure Mean [Left Arm] 97 Blood Pressure Position [Left Arm] Sitting Pulse Oximetry 99 100 Oxygen Delivery Method Room Air Room Air Sepsis Recent Fever Within 48 Hours No Sepsis New/Unexplained Change in Mental Status No Sepsis Action Taken by Nursing No Action Required Home Medications Current Medication List: was personally reviewed by me Laboratory Data Attestation: I reviewed the patient's lab results. 06/29/23 19:36 06/29/23 19:36 Lab Results 06/29/23 06/29/23 06/29/23 Range/Units 19:36 19:42 22:14 WBC 7.87 (4.8-10.8) K/ul RBC 5.74 (4.70-6.10) M/uL Hgb 15.6 (14.0-18.0) g/dl Hct 46.8 (42.0-52.0) % MCV 81.5 (80.0-100.0) fL MCH 27.2 (25.0-34.0) pg MCHC 33.3 (32.0-36.0) g/dL RDW Std Deviation 40.0 (36.4-46.3) fL RDW Coeff of [place] 13.7 (11.5-14.5) % Plt Count 347 (130-400) K/uL MPV 9.2 L (9.4-12.4) fL Immature Gran % (Auto) 0.4 % Neut % (Auto) 73.6 % Lymph % (Auto) 19.7 % [place] % (Auto) 4.2 % Eos % (Auto) 1.7 % Baso % (Auto) 0.4 % Neut # (Auto) 5.80 (1.40-6.50) K/uL Lymph # (Auto) 1.55 (1.20-3.40) K/uL [place] # (Auto) 0.33 (0.11-0.59) K/uL Eos # (Auto) 0.13 (0.00-0.50) K/uL Baso # (Auto) 0.03 (0.00-0.20) K/uL Immature Gran # (Auto) 0.03 (0.01-0.20) K/uL Sodium 137 (136-145) mmol/L Potassium 3.8 (3.5-5.1) mmol/L Chloride 100 (98-107) mmol/L Carbon Dioxide 26 (21-32) mmol/L Anion Gap 11 (3-11) BUN 12 (6-23) mg/dl Creatinine 0.93 (0.6-1.4) mg/dl Est Cr Clr Drug Dosing 122.3 ml/min Est GFR ( Amer) 129.9 ml/min Est GFR (Non-Af Amer) 112.1 ml/min BUN/Creatinine Ratio 12.9 (10-20) Glucose 76 (70-99(Fasting)) mg/dl Calcium 9.7 (8.6-10.3) mg/dl Total Bilirubin 0.9 (0.2-1.0) mg/dl AST 32 (13-39) U/L ALT 15 (7-52) U/L Alkaline Phosphatase 63 (34-104) U/L Total Protein 8.2 (6.0-8.3) gm/dl Albumin 5.1 H (3.4-5.0) gm/dl Globulin 3.1 (2.5-4.0) gm/dl Albumin/Globulin Ratio 1.6 (0.9-2) TSH 0.755 (0.300-4.500) uIu/ml Urine Color Yellow Urine Appearance Clear (Clear) Urine pH 5.5 (4.5-7.5) Ur Specific [place] 1.018 (1.000-1.030) Urine Protein Negative (Negative) Urine Glucose (UA) Negative (Negative) Urine Ketones 1+ H (Negative) Urine Blood Negative (Negative) Urine Nitrite Negative (Negative) Urine Bilirubin Negative (Negative) Urine Urobilinogen Negative (Negative) Ur Leukocyte Esterase Negative (Negative) Salicylates < 3.0 L (3.0-30) mg/dl Urine Opiates Screen Neg (Neg) Ur Methadone, Qual Neg (Neg) Acetaminophen < 3 L (10-30) ug/ml Urine Barbiturates Neg (Neg) Ur Phencyclidine (PCP) Neg (Neg) U Amphetamin/Meth Scrn Neg (Neg) MDMA (Ecstasy) Screen Neg (Neg) U Benzodiazepines Scrn Neg (Neg) Ur Cocaine Metabolite Neg (Neg) U Marijuana (THC) Screen Pos H (Neg) U Marijuana THC Carboxy 409 H (<5) ng/mL Drug Screen Comment SEE NOTE Ethyl Alcohol mg/dL 150.0 H (<10.0) mg/dl SARS-CoV-2, RNA, NAAT NEGATIVE (NEGATIVE) Administered Medications Discontinued Medications Al Hydrox/Mg Hydrox/Simethicone (Aluminum/Magnesium Susp 30 Ml Udc) 30 ml PO Q4H PRN PRN Reason: GI Upset Stop: 07/30/23 01:48 Last Admin: 06/30/23 02:14 Dose: 30 ml Documented By: DMT Bupropion HCl (Bupropion Xl 150 Mg Tabcr) 150 mg PO QAM [facility] Stop: 07/30/23 15:29 Last Admin: 07/02/23 08:56 Dose: 150 mg Documented By: Admin: 07/01/23 08:30 Dose: 150 mg Documented By: Admin: 06/30/23 16:24 Dose: 150 mg Documented By: GRAYSON Clonidine HCl (Clonidine Hcl 0.1 Mg Tab) 0.1 mg PO NOW ONE Stop: 07/01/23 15:45 Last Admin: 07/01/23 17:01 Dose: 0.1 mg Documented By: MAUREEN Co-signed By: SHAWN Hydroxyzine HCl (Hydroxyzine Hcl 25 Mg Tab) 50 mg PO HSZ PRN PRN Reason: Insomnia Stop: 07/30/23 01:48 Last Admin: 07/01/23 22:32 Dose: 50 mg Documented By: Admin: 06/30/23 02:14 Dose: 50 mg Documented By: HUSSEINT Hydroxyzine HCl (Hydroxyzine Hcl 25 Mg Tab) 25 mg PO Q4H PRN PRN Reason: Anxiety Stop: 07/30/23 01:48 Last Admin: 06/30/23 18:23 Dose: 25 mg Documented By: Admin: 06/30/23 09:08 Dose: 25 mg Documented By: MULUGETA Miscellaneous (Remove Nicoderm Patch) 1 each N/A DAILY@0859 [facility] Stop: 07/30/23 08:58 Last Admin: 07/02/23 08:56 Dose: 1 each Documented By: Admin: 07/01/23 08:35 Dose: 1 each Documented By: Admin: 06/30/23 08:46 Dose: Not Given Documented By: MULUGETA Naltrexone HCl (Naltrexone Hcl 50 Mg Tab) 50 mg PO DAILY BRIAN Stop: 08/01/23 08:59 Last Admin: 07/02/23 08:57 Dose: 50 mg Documented By: VIJAY Nicotine (Nicotine 21 Mg/24 Hr Tdsy) 21 mg TD QAM BRIAN Stop: 07/30/23 08:59 Last Admin: 07/02/23 08:56 Dose: 21 mg Documented By: Admin: 07/01/23 08:35 Dose: 21 mg Documented By: Admin: 06/30/23 08:44 Dose: 21 mg Documented By: MULUGETA Nicotine Polacrilex (Nicotine Polacrilex 2 Mg Gum) 1 piece MT Q2HWA PRN PRN Reason: cravings Stop: 08/01/23 10:34 Last Admin: 07/02/23 11:12 Dose: 1 piece Documented By: VIJAY Discharge Plan Visit Data Chief Complaint: Mental Health Evaluation Stated Complaint: MENTAL EVAL ED Provider: Deanne Roberts Discharge Problem: Alcohol dependence, Suicidal ideations Patient Disposition: Admitted As Inpatient Discharge Instructions Interventions: ED Discharge Assessment Last Done: 06/30/23 01:18 Discharge Problem: Alcohol dependence Qualifiers: Substance use status: alcohol-induced mood disorder Qualified Code(s): F10.24 - Alcohol dependence with alcohol-induced mood disorder
[2023-06-29 19:57] LABS: Basophils # (auto) 0.03 K/uL (0.00-0.20); Basophils % (auto) 0.4 %; Eosinophils # (auto) 0.13 K/uL (0.00-0.50); Eosinophils % (auto) 1.7 %; Hematocrit (blood only) 46.8 % (42.0-52.0); Hemoglobin 15.6 g/dl (14.0-18.0); Immature Granulocytes # (auto) 0.03 K/uL (0.01-0.20); Immature Granulocytes % (auto) 0.4 %; Lymphocytes # (auto) 1.55 K/uL (1.20-3.40); Lymphocytes % (auto) 19.7 %; Mean Corpuscular Hemoglobin 27.2 pg (25.0-34.0); Mean Corpuscular Hgb Conc 33.3 g/dL (32.0-36.0); Mean Corpuscular Volume 81.5 fL (80.0-100.0); Mean Platelet Volume 9.2 fL (9.4-12.4); Monocytes # (auto) 0.33 K/uL (0.11-0.59); Monocytes % (auto) 4.2 %; Neutrophils % (auto) 73.6 %; Platelet Count 347 K/uL (130-400); RDW Coefficient of Variation 13.7 % (11.5-14.5); Red Blood Count 5.74 M/uL (4.70-6.10); White Blood Count 7.87 K/ul (4.8-10.8)
[2023-06-29 20:25] LABS: Albumin Level 5.1 gm/dl (3.4-5.0); Bilirubin,Total 0.9 mg/dl (0.2-1.0); Calcium 9.7 mg/dl (8.6-10.3); Potassium 3.8 mmol/L (3.5-5.1)
[2023-06-29 20:31] LABS: Albumin Globulin Ratio 1.6 (0.9-2); BUN Creatinine Ratio 12.9 (10-20); Creatinine Clr Calc Pharmacy 122.3 ml/min; Est GFR (African American) 129.9 ml/min; Est GFR (Non-African American) 112.1 ml/min; Globulin 3.1 gm/dl (2.5-4.0); Total Protein 8.2 gm/dl (6.0-8.3)
[2023-06-29 20:34] LABS: Thyroid Stimulating Hormone 0.755 uIu/ml (0.300-4.500)
[2023-06-29 20:36] LABS: Acetaminophen < 3 ug/ml (10-30); Salicylate < 3.0 mg/dl (3.0-30)
[2023-06-29 22:26] LABS: Appearance Urine Clear (Clear); Bilirubin Urine Negative (Negative); Blood Urine Negative (Negative); Color Urine Yellow; Glucose Urine UA Negative (Negative); Ketones Urine 1+ (Negative); Leukocyte Esterase Urine Negative (Negative); Nitrite Urine Negative (Negative); Protein Urine Negative (Negative); Specific Gravity Urine 1.018 (1.000-1.030); Urobilinogen Urine Negative (Negative); pH Urine 5.5 (4.5-7.5)
[2023-06-29 22:58] LABS: Amphetamines+Metham, Urine Neg (Neg); Barbiturates, Urine Neg (Neg); Benzodiazepine, Urine Neg (Neg); Cocaine, Urine Neg (Neg); MDMA (Ecstacy), Urine Neg (Neg); Marijuana, Urine Pos (Neg); Methadone, Urine Neg (Neg); Opiate, Urine Neg (Neg); Phencyclidine, Urine Neg (Neg)
--- NOTE | 2023-06-30 01:15 | Emergency Department Note ---
ED Visit Note Date and Time: 06/30/2023 0030 Interval History: Sign out received from Dr. Pa who reviewed details of the encounter. Patient was pending bed placement. Summary: Patient has been intoxicated. Once he was sober he was evaluated by staff from [facility] and was excepted to their unit voluntarily .
[2023-06-30] MEDS ORDERED: ACETAMINOPHEN 325 MG TAB PO PRN (01:49)
[2023-06-30] MEDS ORDERED: ALUMINUM/MAGNESIUM SUSP 30 ML UDC PO PRN (01:49)
[2023-06-30] MEDS ORDERED: BISMUTH SUBSALICYLATE LIQD 236 ML PO PRN (01:49)
[2023-06-30] MEDS ORDERED: MAGNESIUM HYDROXIDE SUSP 30 ML UDC PO PRN (01:49)
[2023-06-30] MEDS ORDERED: SODIUM CHLORIDE 0.65% NA SOLN 45 ML (OCEAN) PRN (01:49)
[2023-06-30] MEDS: hydrOXYzine HCl 25 MG TAB PO PRN ×3 (02:14→18:23)
[2023-06-30] MEDS: NICOTINE 21 MG/24 HR TDSY TD SCH (08:44)
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
[2023-06-30] MEDS: buPROPion XL 150 MG TABCR PO SCH (16:24)
[2023-07-01] MEDS: buPROPion XL 150 MG TABCR PO SCH (08:30)
--- NOTE | 2023-07-01 08:34 | Psychiatric Progress Note ---
Date of Service July 01, 2023 Impression / Recommendations Impression 27 y/o M with severe alcohol use disorder who presents with symptoms of depression and passive suicidal thoughts. 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 He requires psychiatric hospitalization due to his suicidal thoughts for safety, stabilization, and medication. 07/01/2023: Slept poorly last night (4 1/2 hours), was up journaling. He says it took him a long time to get to sleep then he woke up with nightmares. Pt works 7 PM to 7 AM shift and says he has a lot of difficulty adapting to "everyone else's schedule" on days off. He notes no subjective withdrawal symptoms (though nightmares could certainly be) and AWSS scores have been low. He reports no adverse effect from bupropion "except maybe a little buzziness, but that could be sleep deprivation". He denies suicidal thoughts. 06/30/2023: He reports some improvement with a fairly brief trial of bupropion SR 150 mg QAM 2 years ago. Risks and benefits of, and alternatives to, the use of bupropion (Wellbutrin) XL for Major Depression symptoms were reviewed. This discussion included but was not limited to issues known potentially to be associated with use of such medication, especially at high doses or with longer use, including irritability, insomnia, sedation, weight gain, GI side effects. Discussed the known elevated risk of seizures at doses of 600 mg or more and the consequent need to minimize the chance of double-dosing, such as by use of a pill reminder. The patient agreed to start a trial of bupropion XL. We also discussed MAT for alcohol use disorder, including disulfiram, acamprosate, and naltrexone. Pt notes an injection site reaction after several Vivitrol injections in the past, but would like to consider oral naltrexone. 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 * start bupropion XL 150 mg QAM * AWSS monitoring for alcohol withdrawal symptoms * consider starting naltrexone 50 mg PO daily prior to discharge Inventory Assets Strengths: has local supports, voluntary, employed Needs: safety and stabilization, medication adjustment, additional coping skills, outpatient services Suicide Risk Level Suicide Risk Level: Moderate (q15 min suicide checks) (passive thoughts, feels safe here) Risk Factors Assessment Male: Yes : Yes Do You Have Access To A Gun?: No Health Problems: No Mental Health Diagnoses: Yes Substance Use Disorders: Yes Previous Attempt: Yes Previous Psychiatric Hospitalization: Yes Hopelessness: No Protective Factors Assessment : No Responsible for Young Children: No Employed: Yes Supportive Family: No Good Rapport with Provider: Yes Interval History Identifying Information KVNG STEPHENS is a 27-year-old M who currently lives in [place], [place] with a roommate, has a history of depression and alcohol use disorder, and was admitted on 06/30/23 00:53 on a 201 voluntary commitment for suicidal thoughts. Chief Complaint "Didn't sleep good". Review of Systems Sleep Information Total Hours of Sleep: 4.75 Meal Information Percent Meal Consumed - Breakfast: 50 Percent Meal Consumed - Lunch: 100 Percent Meal Consumed - Dinner: 75 Subjective Subjective The patient was seen and assessed and interval progress reviewed in a multidisciplinary team meeting with the treatment team. For details, see the "Impression" section. Overall I spent a total of 42 minutes for this inpatient follow-up including review of chart records, direct evaluation of the patient [id number], counseling the patient, reconciling and ordering medication, medication education with the patient, risk assessment, discussion during interdisciplinary treatment rounds, and documentation in the electronic health record. Physical Exam Psychiatric Orientation: alert, oriented to person, oriented to place, oriented to time and cooperative (pleasant) Apperance: appropriately dressed and appropriately groomed Eye Contact: + fair eye contact Motor Behavior: + psychomotor retardation Speech: normal rate/rhythm/volume of speech Affect: + constricted affect Mood: + depressed mood Thought Process: linear/logical thought process and thought association intact Thought Content: + cognitive distortions and reality based without delusions Suicidal Thoughts: denies suicidal plan and denies suicidal intent; + reports suicidal thoughts Homicidal Thoughts: denies homicidal thoughts Hallucinations: no auditory hallucinations and no visual hallucinations Cognition: recent memory grossly intact, remote memory grossly intact, attention grossly intact and language grossly intact Estimated Intelligence: average estimated intelligence Insight: + limited insight Judgment: + fair judgement Vital Signs (Past 24 Hours) Last Vital Signs Temp 36.8 C 07/01/23 06:35 Pulse 65 07/01/23 06:35 Resp 18 07/01/23 06:35 BP 146/83 H 07/01/23 06:35 Pulse Ox 96 06/30/23 18:14 O2 Del Method Room Air 06/30/23 18:14 Results & Data ([facility]) Current Inpatient Medications Current Inpatient Medications: Current Inpatient Medications Acetaminophen (Acetaminophen 325 Mg Tab) 650 mg PO Q4H PRN PRN Reason: Headache or Minor Fever Stop: 07/30/23 01:48 Al Hydrox/Mg Hydrox/Simethicone (Aluminum/Magnesium Susp 30 Ml Udc) 30 ml PO Q4H PRN PRN Reason: GI Upset Stop: 07/30/23 01:48 Last Admin: 06/30/23 02:14 Dose: 30 ml Bupropion HCl (Bupropion Xl 150 Mg Tabcr) 150 mg PO QAM [facility] Stop: 07/30/23 15:29 Last Admin: 06/30/23 16:24 Dose: 150 mg Hydroxyzine HCl (Hydroxyzine Hcl 25 Mg Tab) 50 mg PO HSZ PRN PRN Reason: Insomnia Stop: 07/30/23 01:48 Last Admin: 06/30/23 02:14 Dose: 50 mg Hydroxyzine HCl (Hydroxyzine Hcl 25 Mg Tab) 25 mg PO Q4H PRN PRN Reason: Anxiety Stop: 07/30/23 01:48 Last Admin: 06/30/23 18:23 Dose: 25 mg Magnesium Hydroxide (Magnesium Hydroxide Susp 30 Ml Udc) 30 ml PO DAILY PRN PRN Reason: Constipation Stop: 07/30/23 01:48 Miscellaneous (Remove Nicoderm Patch) 1 each N/A DAILY@0859 [facility] Stop: 07/30/23 08:58 Last Admin: 06/30/23 08:46 Dose: Not Given Nicotine (Nicotine 21 Mg/24 Hr Tdsy) 21 mg TD QAM [facility] Stop: 07/30/23 08:59 Last Admin: 06/30/23 08:44 Dose: 21 mg Sodium Chloride (Sodium Chloride 0.65% Na Soln 45 Ml ([place])) 1 - 2 sprays NA PRN PRN PRN Reason: Nasal Dryness/Congestion Stop: 07/30/23 01:48 Mental Health & Subst Abuse Tx Psychiatrist Date Of Appointment With Psychiatric Provider: SILVIO Therapist Name of Therapist: SILVIO Rodent Control Worker Name of Rodent Control Worker: SILVIO Post Discharge Appointments Primary Care Physician Name Of Family Doctor/PCP: SILVIO
[2023-07-01] MEDS: NICOTINE 21 MG/24 HR TDSY TD SCH (08:35)
[2023-07-01] MEDS ORDERED: cloNIDine HCL 0.1 MG TAB PO ONE (15:44)
[2023-07-01] MEDS: hydrOXYzine HCl 25 MG TAB PO PRN (22:32)
[2023-07-02] MEDS: NICOTINE 21 MG/24 HR TDSY TD SCH (08:56)
[2023-07-02] MEDS: buPROPion XL 150 MG TABCR PO SCH (08:56)
[2023-07-02] MEDS ORDERED: NALTREXONE HCL 50 MG TAB PO SCH (09:00)
--- NOTE | 2023-07-02 09:03 | Psychiatric Progress Note ---
Date of Service July 02, 2023 Impression / Recommendations Impression 27 y/o M with severe alcohol use disorder who presents with symptoms of depression and passive suicidal thoughts. 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 He requires psychiatric hospitalization due to his suicidal thoughts for safety, stabilization, and medication. 07/03/2023: Has been reporting improving mood. 07/01/2023: Slept poorly last night (4 1/2 hours), was up journaling. He says it took him a long time to get to sleep then he woke up with nightmares. Pt works 7 PM to 7 AM shift and says he has a lot of difficulty adapting to "everyone else's schedule" on days off. He notes no subjective withdrawal symptoms (though nightmares could certainly be) and AWSS scores have been low. He reports no adverse effect from bupropion "except maybe a little buzziness, but that could be sleep deprivation". He denies suicidal thoughts. 06/30/2023: He reports some improvement with a fairly brief trial of bupropion SR 150 mg QAM 2 years ago. Risks and benefits of, and alternatives to, the use of bupropion (Wellbutrin) XL for Major Depression symptoms were reviewed. This discussion included but was not limited to issues known potentially to be associated with use of such medication, especially at high doses or with longer use, including irritability, insomnia, sedation, weight gain, GI side effects. Discussed the known elevated risk of seizures at doses of 600 mg or more and the consequent need to minimize the chance of double-dosing, such as by use of a pill reminder. The patient agreed to start a trial of bupropion XL. We also discussed MAT for alcohol use disorder, including disulfiram, acampros ate, and naltrexone. Pt notes an injection site reaction after several Vivitrol injections in the past, but would like to consider oral naltrexone. 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: (2) Alcohol use disorder, severe, dependence: Plan 07/03/2023: * continue bupropion XL 150 mg QAM * continue naltrexone 50 mg PO daily 07/01/2023: * continue bupropion XL 150 mg QAM * stop AWSS monitoring * start naltrexone 50 mg PO daily tomorrow 06/30/2023: The patient was admitted to the [facility] ([facility] mental health unit) on q15 minute checks (behavioral with suicide precautions) for safety.The patient will participate in group, recreational, and milieu therapies and will be offered additional individual and family sessions as clinically appropriate. * start bupropion XL 150 mg QAM * AWSS monitoring for alcohol withdrawal symptoms * consider starting naltrexone 50 mg PO daily prior to discharge Inventory Assets Strengths: has local supports, voluntary, employed Needs: safety and stabilization, medication adjustment, additional coping skills, outpatient services Suicide Risk Level Suicide Risk Level: Moderate (q15 min suicide checks) (passive thoughts, feels safe here) Risk Factors Assessment Male: Yes : Yes Do You Have Access To A Gun?: No Health Problems: No Mental Health Diagnoses: Yes Substance Use Disorders: Yes Previous Attempt: Yes Previous Psychiatric Hospitalization: Yes Hopelessness: No Protective Factors Assessment : No Responsible for Young Children: No Employed: Yes Supportive Family: No Good Rapport with Provider: Yes Interval History Identifying Information KVNG STEPHENS is a 27-year-old M who currently lives in [place], [place] with a roommate, has a history of depression and alcohol use disorder, and was admitted on 06/30/23 00:53 on a 201 voluntary commitment for suicidal thoughts. Chief Complaint "[]". Review of Systems Sleep Information Total Hours of Sleep: 6 Meal Information Percent Meal Consumed - Breakfast: 80 Percent Meal Consumed - Lunch: 90 Percent Meal Consumed - Dinner: 100 Subjective Subjective The patient was seen and assessed and interval progress reviewed in a multidisciplinary team meeting with the treatment team. For details, see the "Impression" section. Overall I spent a total of [] minutes for this inpatient follow-up including review of chart records, direct evaluation of the patient [id number], co unseling the patient, [reconciling and ordering medication, ]medication education with the patient, risk assessment, discussion during interdisciplinary treatment rounds, and documentation in the electronic health record. Physical Exam Psychiatric Orientation: alert, oriented to person, oriented to place, oriented to time and cooperative (pleasant) Apperance: appropriately dressed and appropriately groomed Eye Contact: + fair eye contact Motor Behavior: + psychomotor retardation Speech: normal rate/rhythm/volume of speech Affect: + constricted affect Mood: + depressed mood Thought Process: linear/logical thought process and thought association intact Thought Content: + cognitive distortions and reality based without delusions Suicidal Thoughts: denies suicidal plan and denies suicidal intent; + reports suicidal thoughts Homicidal Thoughts: denies homicidal thoughts Hallucinations: no auditory hallucinations and no visual hallucinations Cognition: recent memory grossly intact, remote memory grossly intact, attention grossly intact and language grossly intact Estimated Intelligence: average estimated intelligence Insight: + limited insight Judgment: + fair judgement Vital Signs (Past 24 Hours) Last Vital Signs Temp 36.7 C 07/02/23 06:35 Pulse 77 07/02/23 06:36 Resp 16 07/02/23 06:35 BP 119/73 07/02/23 06:36 Pulse Ox 97 07/01/23 15:41 O2 Del Method Room Air 07/01/23 15:41 Results & Data ([facility]) Current Inpatient Medications Current Inpatient Medications: Current Inpatient Medications Acetaminophen (Acetaminophen 325 Mg Tab) 650 mg PO Q4H PRN PRN Reason: Headache or Minor Fever Stop: 07/30/23 01:48 Al Hydrox/Mg Hydrox/Simethicone (Aluminum/Magnesium Susp 30 Ml Udc) 30 ml PO Q4H PRN PRN Reason: GI Upset Stop: 07/30/23 01:48 Last Admin: 06/30/23 02:14 Dose: 30 ml Bupropion HCl (Bupropion Xl 150 Mg Tabcr) 150 mg PO QAM [facility] Stop: 07/30/23 15:29 Last Admin: 07/02/23 08:56 Dose: 150 mg Hydroxyzine HCl (Hydroxyzine Hcl 25 Mg Tab) 50 mg PO HSZ PRN PRN Reason: Insomnia Stop: 07/30/23 01:48 Last Admin: 07/01/23 22:32 Dose: 50 mg Hydroxyzine HCl (Hydroxyzine Hcl 25 Mg Tab) 25 mg PO Q4H PRN PRN Reason: Anxiety Stop: 07/30/23 01:48 Last Admin: 06/30/23 18:23 Dose: 25 mg Magnesium Hydroxide (Magnesium Hydroxide Susp 30 Ml Udc) 30 ml PO DAILY PRN PRN Reason: Constipation Stop: 07/30/23 01:48 Miscellaneous (Remove Nicoderm Patch) 1 each N/A DAILY@0859 [facility] Stop: 07/30/23 08:58 Last Admin: 07/02/23 08:56 Dose: 1 each Naltrexone HCl (Naltrexone Hcl 50 Mg Tab) 50 mg PO DAILY [facility] Stop: 08/01/23 08:59 Last Admin: 07/02/23 08:57 Dose: 50 mg Nicotine (Nicotine 21 Mg/24 Hr Tdsy) 21 mg TD QAM [facility] Stop: 07/30/23 08:59 Last Admin: 07/02/23 08:56 Dose: 21 mg Sodium Chloride (Sodium Chloride 0.65% Na Soln 45 Ml ([place])) 1 - 2 sprays NA PRN PRN PRN Reason: Nasal Dryness/Congestion Stop: 07/30/23 01:48 Mental Health & Subst Abuse Tx Psychiatrist Date Of Appointment With Psychiatric Provider: SILVIO Therapist Name of Therapist: SILVIO Cigar Head Pegger Name of Cigar Head Pegger: SILVIO Post Discharge Appointments Primary Care Physician Name Of Family Doctor/PCP: SILVIO
[2023-07-02] MEDS ORDERED: NICOTINE POLACRILEX 2 MG GUM MT PRN (10:35)
--- NOTE | 2023-07-02 11:17 | Discharge Summary ---
Date of Service July 02, 2023 History of Present Illness As part of a thorough review of the available medical records, I have read and incorporated into my assessment the following note by the ED physician: "This 27-year-old male patient past medical history of alcohol use disorder, mood disorder, asthma presents to the emergency department with complaints of "dark thoughts." The patient states he has been depressed for many years, he does have a history of daily alcohol intake. Patient states he contemplating suicide. He states he has had several attempts in the past but were unsuccessful. He has had 3 inpatient stays for psychiatric issues. The patient denies any recent illnesses. He states he and his girlfriend just broke up several days ago, but he does not feel that that is a contributing factor to his symptoms currently. He states when he drinks alcohol he is more willing to speak about his feelings. Patient denies any suicide attempt this evening. He did was drinking alcohol prior to arrival." the following notes by the ED psychiatric piano case maker: "Accompanied Dr. Pa to complete brief MH assessment. Pt states he is having really bad thoughts and that he needs help. Pt reports he was living in [place] with his girlfriend and they moved back to [place] in May. He states she went back to live in [place] on Thursday. Pt also states that he drinks more than anyone should. He does report suicidal ideations. Pt states he has attempted suicide three prior times, most recently in June of 2021. Pt states his attempts have been to shoot himself but fired into the air accidentally. He also states that he was going to pour gasoline on himself but forgot his fingernail former. Pt does not have any outpatient providers and is not on any medications. Process for medical clearance explained with pt verbalizing understanding. Pts friends mother, Cecilia Jolly ([phone]) brought him to the ER. She believes pt will also need treatment for his alcohol use. She also states pt has been making passive statements about suicide in recent days including mentioning something about how an accident at work could be fatal. She reports pts biological parents are but his grandparents reside in [facility]."" "Met with pt to complete suicide risk assessment and mental health evaluation. Pt states he is having suicidal thoughts but denies any plan at this time. He does indicate that he sort of has intent. He denies self- injury, denies AH/VH/HI. Reports poor sleep, getting about 4 hours nightly, and a recently decreased appetite. He denies recent triggers but states that his depression began when his parents in 2015 and 2018. 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 Pt states he has been drinking to excess since 2015, though does have periods of sobriety since then. Currently pt states he drinks 8 or more beers daily. He denies serious withdrawal complications and states they are predominantly limited to tremors and irritability." and the following note by the psychiatric liaison nurse: "Pt willing for inpatient treatment (201). Pt initially wanting to go to [facility] but did not have beds available. Pt hesitant to come to due to fe oswaldo like he didn't get much help last admission in 2021 but did agree to sign in. Pt pleasant, cooperative, blunted. States having SI without specific plan. Pt states of having thoughts of how he might do this but denies plan. Pt denies SIB/HI/hallucinations/delusions. Past hx of SIB by burning self with a fingernail former. Pt states having chronic SI but has been escalating the past few months. Pt states stressors include recently moving back to [place] with his girlfriend in May after living in [place] for approx. 9 months. Pt and girlfriend broke up recently and she moved back to [place]. Pt states he is still talking to her and is a support. Other supports include his friend/roommate, Ricky Jolly. Pt states Ricky's mom, Cecilia is like a second mom to him and is the one who brought pt to the ED. 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 Pt's mother in 2015 and father in 2018. Pt states he started excessively drinking in 2015 due to his mother's . Pt states during that time he would drink approximately a handle most days. Pt having times of sobriety. Pt states he has been drinking again since May but has cut ba ck to 8 beers most days. Previous inpatient stays on and [facility]. Past suicide attempts include pouring gasoline on self but then forgetting his fingernail former (this is most recent attempt in 2020) and trying to shoot self with gun but accidently shot into the air. Pt denies current outpatient psychiatry or therapy services. Pt states pcp is through [facility] but hasn't been there is a couple years. Pt denies current medications. Pt states previous trial of Wellbutrin. Denies medical issues other than asthma. Issues falling and staying asleep with at least 1 nightmare per week. Pt states poor appetite as well and states to have lost 10lbs within the last week or so. Pt states vaping daily which he is guessing to be equal to 1 pack of cigarettes per day. Denies other substance use other than alcohol and nicotine. Pt denies legal issues. Denies access to firearms. ROIs signed for Ricky Rik (friend), Cecilia Rik (friend's mother), Verona Orosco (ex-girlfriend), and [facility] (pcp). " Review of the medical record reveals previous admission here July 2021 and psychiatric consultation during admission for alcohol withdrawal in October 2021. Review of pertinent labs reveals they are noncontributory. A urine toxicology screen was positive for metabolites of cannabis. BAL was 150.0. Pt endorses history as above. He says he moved to [place] about a year ago, returned with her to this area last month, then she broke up with him. He's "been pretty depressed" for several months but became overwhelmed with the breakup and has been having suicidal thoughts with no plan. Life stressors include finding his mother of an overdose in 2016 then "having to pull the plug on" his father in 2019 after an overdose. Pt has been drinking 750 mL vodka or a case (24) of 12-oz beers most days for the past year. He occasionally goes a couple of days without drinking. He insists he's never had any withdrawal symptoms despite the admission for alcohol withdrawal in October 2021. He's had 2 DUIs and does not currently have a license. He thinks the bupropion SR 150 mg QAM on which he was discharged in 2021 was "kind of" helpful but he never refilled in or kept any follow-up appointments. Physical Exam Psychiatric Orientation: alert, oriented to person, oriented to place, oriented to time and cooperative (pleasant) Apperance: appropriately dressed and appropriately groomed Eye Contact: + fair eye contact Motor Behavior: + psychomotor retardation Speech: normal rate/rhythm/volume of speech Affect: + constricted affect Mood: + depressed mood Thought Process: linear/logical thought process and thought association intact Thought Content: + cognitive distortions and reality based without delusions Suicidal Thoughts: denies suicidal plan and denies suicidal intent; + reports suicidal thoughts Homicidal Thoughts: denies homicidal thoughts Hallucinations: no auditory hallucinations and no visual hallucinations Cognition: recent memory grossly intact, remote memory grossly intact, attention grossly intact and language grossly intact Estimated Intelligence: average estimated intelligence Insight: + limited insight Judgment: + fair judgement Vital Signs (Past 24 Hours) Last Vital Signs Temp 36.7 C 07/02/23 06:35 Pulse 77 07/02/23 06:36 Resp 16 07/02/23 06:35 BP 119/73 07/02/23 06:36 Pulse Ox 97 07/01/23 15:41 O2 Del Method Room Air 07/01/23 15:41 See admission H&P and DOD assessment. Principal Diagnosis Alcohol-induced Mood Disorder with Depressive Symptoms Psychiatric Data See daily stay summary. In short, safety was maintained and the patient was cooperative with care. Medication changes included initiation of bupropion XL 150 mg daily and naltrexone 50 mg daily and they tolerated this well. A family session was [held] and safety plan was completed prior to discharge. 07/01/2023: Slept poorly last night (4 1/2 hours), was up journaling. He says it took him a long time to get to sleep then he woke up with nightmares. Pt works 7 PM to 7 AM shift and says he has a lot of difficulty adapting to "everyone else's schedule" on days off. He notes no subjective withdrawal symptoms (though nightmares could certainly be) and AWSS scores have been low. He reports no adverse effect from bupropion "except maybe a little buzziness, but that could be sleep deprivation". He denies suicidal thoughts. 06/30/2023: He reports some improvement with a fairly brief trial of bupropion SR 150 mg QAM 2 years ago. Risks and benefits of, and alternatives to, the use of bupropion (Wellbutrin) XL for Major Depression symptoms were reviewed. This discussion included but was not limited to issues known potentially to be associated with use of such medication, especially at high doses or with longer use, including irritability, insomnia, sedation, weight gain, GI side effects. Discussed the known elevated risk of seizures at doses of 600 mg or more and the consequent need to minimize the chance of double-dosing, such as by use of a pill reminder. The patient agreed to start a trial of bupropion XL. We also discussed MAT for alcohol use disorder, including disulfiram, acamprosate, and naltrexone. Pt notes an injection site reaction after several Vivitrol injections in the past, but would like to consider oral naltrexone. Day of Discharge Assessment Today the patient voices readiness for discharge. They note improvement in mood and deny thoughts to harm self or others. Thoughts remain organized and they are improved from admission. There is no evidence of psychosis. They agree to take mediations as prescribed and keep follow-up appointments. They are stable for discharge to outpatient level of care. Overall I spent a total of 31 minutes on the floor for this discharge including review of chart records, review of test results, direct evaluation of the patient [id number], counseling the patient, reconciling and ordering medication, medication education with the patient, risk assessment, discussion during interdisciplinary treatment rounds, and documentation in the electronic health record. Transition of Care Transition Of Care Record: was reviewed with the patient Advance Directives Advance Directives Information Provided: Yes Advance Directives: No Mental Health Advance Directive: No Advance Directives on File: No Living Will: No Power of Nca Certified Concierge: No Advance Directives Reason:: Declines as Mental Health Visit. Suicide Risk Level Suicide Risk Level Comments: Suicide risk at discharge is deemed low as the patient is no longer requiring 24-hr monitoring, has a safety plan, and is free of suicidal ideation at discharge. Risk Factors Assessment Male: Yes : Yes Do You Have Access To A Gun?: No Health Problems: No Mental Health Diagnoses: Yes Substance Use Disorders: Yes Previous Attempt: Yes Previous Psychiatric Hospitalization: Yes Hopelessness: No Protective Factors Assessment : No Responsible for Young Children: No Employed: Yes Supportive Family: No Good Rapport with Provider: Yes Tobacco Cessation at Discharge Tobacco Cessation Medication Prescribed at Discharge: Offered & Pt Refused Total Time Total Time Spent: Greater Than 30 Minutes (31) Total Time Includes: Examination of the patient, Discharge Planning, Medication Reconciliation and As well as (documentation) Discharge Data Lab Results 06/29/23 06/29/23 06/29/23 19:36 19:42 22:14 WBC 7.87 RBC 5.74 Hgb 15.6 Hct 46.8 MCV 81.5 MCH 27.2 MCHC 33.3 RDW Std Deviation 40.0 RDW Coeff of [place] 13.7 Plt Count 347 MPV 9.2 L Immature Gran % (Auto) 0.4 Neut % (Auto) 73.6 Lymph % (Auto) 19.7 Cecil % (Auto) 4.2 Eos % (Auto) 1.7 Baso % (Auto) 0.4 Neut # (Auto) 5.80 Lymph # (Auto) 1.55 Cecil # (Auto) 0.33 Eos # (Auto) 0.13 Baso # (Auto) 0.03 Immature Gran # (Auto) 0.03 Sodium 137 Potassium 3.8 Chloride 100 Carbon Dioxide 26 Anion Gap 11 BUN 12 Creatinine 0.93 Est Cr Clr Drug Dosing 122.3 Est GFR ( Amer) 129.9 Est GFR (Non-Af Amer) 112.1 BUN/Creatinine Ratio 12.9 Glucose 76 Calcium 9.7 Total Bilirubin 0.9 AST 32 ALT 15 Alkaline Phosphatase 63 Total Protein 8.2 Albumin 5.1 H Globulin 3.1 Albumin/Globulin Ratio 1.6 TSH 0.755 Urine Color Yellow Urine Appearance Clear Urine pH 5.5 Ur Specific [place] 1.018 Urine Protein Negative Urine Glucose (UA) Negative Urine Ketones 1+ H Urine Blood Negative Urine Nitrite Negative Urine Bilirubin Negative Urine Urobilinogen Negative Ur Leukocyte Esterase Negative Salicylates < 3.0 L Urine Opiates Screen Neg Ur Methadone, Qual Neg Acetaminophen < 3 L Urine Barbiturates Neg Ur Phencyclidine (PCP) Neg U Amphetamin/Meth Scrn Neg MDMA (Ecstasy) Screen Neg U Benzodiazepines Scrn Neg Ur Cocaine Metabolite Neg U Marijuana (THC) Screen Pos H Ethyl Alcohol mg/dL 150.0 H SARS-CoV-2, RNA, NAAT NEGATIVE Hospital Course 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 ([facility] health unit) on q15 minute checks (behavioral with suicide precautions) for safety.The patient will participate in group, recreational, and milieu therapies and will be offered additional individual and family sessions as clinically appropriate. * start bupropion XL 150 mg QAM * AWSS monitoring for alcohol withdrawal symptoms * consider starting naltrexone 50 mg PO daily prior to discharge Mental Health & Subst Abuse Tx Psychiatrist Name of Psychiatrist: [facility] Psychiatrist's Date Of Appointment With Psychiatric Provider: NA Time of Appointment with Psychiatrist: A referral has been sent. Please follow- up to schedule intake appointment. Psychiatric Appointment Comment: You will need to ensure your MA is updated with current address. Therapist Name of Therapist: SILVIO Basting Marker Name of Basting Marker: NA Post Discharge Appointments Primary Care Physician Name Of Family Doctor/PCP: [facility] - Dr. Gaytan Primary [facility] Date of Future Appointment with PCP: 07/07/23 Time of Appointment with PCP: arrival time 7:30 AM Provider Appointment Comment: [address] [place], [place] [id number] [place] [address] Smoking Cessation Counseling Tobacco Cessation Medication Prescribed at Discharge: Offered & Pt Refused Contact Information Discharge Discharge Address: [address] [place] [id number] Discharge Plan Discharge Items Patient Disposition: Home - Self-Care Reason For Visit: DEPRESSIVE EPISODE Discharge Diagnosis: Alcohol-induced Mood Disorder with Depressive Symptoms Activity: Resume your previous activity Non-emergency contact: Primary Care Provider and Psychiatrist Call non-emergency contact if: your symptoms worsen Follow-up/Referrals: PCP,NO [Primary Care Provider] - Diet: Regular Addtl Attending Provider Instructions: SPECIAL CARE INSTRUCTIONS: 1. Follow through with your scheduled aftercare appointments. If unable to keep an appointment, please call to reschedule. 2. Take your medication only as prescribed. Medication should not be changed or stopped without the approval of your doctor. In the event of worsening symptoms or concerns about side effects, contact your doctor immediately. 3. Utilize new healthy coping skills, anger management skills, and stress management skills learned during your hospitalization. Journal feelings and process them with a support person. Identify stressors or situations that may result in relapse, deterioration or inappropriate behaviors and develop a plan to deal with those issues. 4. If your coping skills are ineffective and you are in crisis, contact your outpatient providers for direction. If unable to reach your providers, please call the [facility] CRISIS LINE AT , go to the [facility] walk-in center at [address], [address], [place], or go to the closest Emergency Room. 5. Avoid alcohol and un-prescribed drugs. 6. You have been provided with the Mental Health Advance Directives Pamphlet for your review. 7. Your condition is stable for discharge to outpatient level of care, but recovery is an ongoing process. Ifthoughts to harm yourself or others return, follow the safety plan developed during your stay. Planning for a safe return home includes securing weapons. Our treatment team recommends weaponsbe removed from the home until your outpatient provider reassesses your progress. In rare cases where the items themselvescannot be removed, guns and ammunitionshould be secured separatelyand keys stored by a reliable personoutside of the home. If you were admitted on an involuntary commitment, the police or other legal authorities may be involved in this process. AFTERCARE APPOINTMENTS: * Please call your insurance company prior to your scheduled appointment to confirm your aftercare providers are covered. Take your insurance information to your appointments. WHO TO CALL AND WHEN: Medical Emergencies: For questions or emergencies related to your hospital stay, please contact the Inpatient Behavioral Health Unit at [phone]. A plater production is on-call 22/12 for the Behavioral Health Unit for emergencies At any time you feel your situation is an emergency, you may also call 911 immediately. Pending Studies at Discharge: No Stand-Alone Forms: [facility] [employer], Smoking Cessation Medications and DC Order Prescriptions: New naltrexone 50 mg Tablet 50 mg PO DAILY 30 Days Qty: 30 0RF bupropion HCl 150 mg Tablet Extended Release 24 Hr 150 mg PO QAM 30 Days Qty: 30 0RF No Action No Known Home Medications Discharge Orders: Discharge Order (Routine); Ordered 07/02/23 Ordered By: Levon Fernando Admission Data Admit Date/Time: 06/30/23 00:53 Attending Provider: Levon Fernando Admit Provider: Levon Fernando Primary Care Provider: PCP,NO Coding Level of Care Code 29275 D/C day mgmt > 30 min Diagnoses Alcohol-induced depressive disorder with moderate or severe use disorder F10.24 Alcohol use disorder, severe, dependence F10.20 Time Spent (min) 31
[2023-07-02 14:08] LABS: Marijuana Quant, GCMS Urine 409 ng/mL (<5)
== END 2023-07-02 12:32 | disposition home or self-care (01) | DRG 897 ==
LOC: ED 18:52 → 3S 06-30 00:53